=== PATIENT | male | born 1940 | race Asian ===

== ENCOUNTER 2020-11-06 18:16 | Inpatient (IN) | payer OTHER, SELFPAY ==
[~2020-11-06] VITALS: Ht 165.1 cm; Wt 65.3 kg
[~2020-11-06 18:16] MED LIST: ACET-9531 PO; ALEN70TA85 PO; ALLO100T21 PO; AMLO10TA PO; ASPI-1822 PO; BICA50TA7 PO; CLOP75TA55 PO; DOCU-299 PO; FINA5TAB1 PO; GABA100C PO; GLIM2TAB PO; HYDR-3293 PO; ISOS20TA13 PO; LINA290C PO; LIP80 PO; LYR75 PO; METF500T PO; METO100T14 PO; OMEP20TC10 PO; SITA100T8 PO; TAMS0.4C96 PO
[2020-11-06 20:19] VITALS: BP 123/76
--- NOTE | 2020-11-06 20:19 | NUR ---
PT TAKEN TO BED 10A
[2020-11-06] MEDS ORDERED: MORPHINE SULFATE 4 MG/ML SYR IVP ONE (20:25)
--- NOTE | 2020-11-06 20:45 | NUR ---
80 y/o [place] [facility] [place] / SOB x 1 day. Pt recently tested + COVID. Pt is nonverbal , observed incomprehensible sounds and only understands Setswana. GCS 14. RR even and mildly labored , Lung sounds BL diminished. No cough observed by pt at this time. Pt 80% on room air. Pt on NRB 15L oxygen level 97%. S1S2 noted. Pt placed on cardiac specialist, pulse ox and bp cuff. Pt resting in bed, locked and in lowest position, HOB elevated, side rail x 2 for pt safety. VSS. No acute distress noted. pmh: prostate cancer , DM , HTN NKA
[2020-11-06] MEDS ORDERED: DEXAMETHASONE 4 MG/ML VIAL IVP ONE (21:05)
[2020-11-06] MEDS ORDERED: metroNIDAZOLE 500 MG/NS PREMIX 100 ML IV ONE (21:05)
[2020-11-06] MEDS ORDERED: AZITHROMYCIN 500 MG in DEXTROSE 5% 250 ML IV ONE (21:05)
[2020-11-06] MEDS ORDERED: AZITHROMYCIN 500 MG INJ VIAL IV ONE (21:34)
[2020-11-06] MEDS ORDERED: cefTRIAXone 1,000 MG VIAL ONE (21:35)
[2020-11-06 21:44] LABS: HEMOGLOBIN 8.4 g/dL (12.0-18.0); LYMPHOCYTES # (AUTO) 0.2 K/uL (2.0-11.5); LYMPHOCYTES % (AUTO) 3.1 % (20.5-51.1); MEAN CORPUSCULAR HEMOGLOBIN 29 pg (27-31); MEAN CORPUSCULAR HGB CONC 34 g/dL (33-37); MEAN CORPUSCULAR VOLUME 87.2 fL (80-94); MONOCYTES # (AUTO) 0.1 K/uL (0.8-1.0); MONOCYTES % (AUTO) 1.9 % (1.7-9.3); PLATELET COUNT (AUTO) 274 K/uL (140-450); RED BLOOD CELL COUNT(AUTO) 2.87 MIL/uL (4.20-6.10); WHITE BLOOD COUNT (AUTO) 7.3 K/uL (4.8-10.8)
--- NOTE | 2020-11-06 22:00 | NUR ---
PER MERCEDEZ JEAN TO ADMINISTER STRAIGHT CATH FOR URINE COLLECTION.
[2020-11-06 22:02] LABS: ALBUMIN 2.8 g/dL (3.4-5.0); ANION GAP 19.9 (8-16); ASPARTATE AMINOTRANSFERASE 87 U/L (15-37); CARBON DIOXIDE 20.1 mmol/L (21-32); CHLORIDE 110 mmol/L (98-107); CREATININE 3.4 mg/dL (0.6-1.3); GLUCOSE 334 mg/dL (74-106); LACTATE DEHYDROGENASE 450 U/L (85-227); SODIUM SERUM 146 mmol/L (136-145); TOTAL BILIRUBIN 0.5 mg/dL (0.0-1.0)
[2020-11-06 22:03] LABS: PROTHROMBIN TIME 9.6 secs (10.8-13.4)
--- NOTE | 2020-11-06 22:07 | NUR ---
jose hemphill , flu & rsv swabs collected and handed to lab.
[2020-11-06 22:08] LABS: UREA NITROGEN, BLOOD 107 mg/dL (7-18)
[2020-11-06 22:19] LABS: FIBRINOGEN 524 mg/dL (200-400)
[2020-11-06 22:28] LABS: D-DIMER > 5000 ng/ml (0-400)
[2020-11-06 22:35] LABS: CKMB RELATIVE INDEX 0.4 (0.0-2.5); CREATINE KINASE MB 3.4 ng/mL (0-3.6)
--- NOTE | 2020-11-06 23:00 | NUR ---
EKG PERFORMED AT BEDSIDE. EKG READS SINUS RHYTHM @ 76
--- NOTE | 2020-11-06 23:50 | NUR ---
RT made aware of pt status on 6L NC - per oxygen order to maintain pt above 90% will place pt on high flow.
--- NOTE | 2020-11-07 00:17 | NUR ---
PT PLACED ON 15LOXY TO MAINTAIN SPO2 >90 CURRENT SPO2 91% HR 78
--- NOTE | 2020-11-07 00:45 | NUR ---
Urine sample collected and walked to lab.
--- NOTE | 2020-11-07 00:45 | NUR ---
# 16 FR Urinary catheter inserted utilizing sterile technique. Immediate return of 800 ml YELLOW urine noted. Urine sample collected and sent to lab. Pt tolerated procedure WELL. Perineal care provided at this time.
--- NOTE | 2020-11-07 00:50 | NUR ---
Sussy koch in ED - 11/07/20 at 0135 by ANGELA RT made aware of pt status on 6L NC - per oxygen order to maintain pt above 90% will place pt on high flow.
[2020-11-07 01:28] LABS: APPEARANCE,URINE CLEAR (CLEAR); BILIRUBIN,URINE NEGATIVE (NEGATIVE); BLOOD, URINE TRACE-I (NEGATIVE); COLOR,URINE YELLOW (YELLOW); LEUKOCYTE ESTERASE ,URINE NEGATIVE (NEGATIVE); NITRITE, URINE NEGATIVE (NEGATIVE); PH,URINE 5.5 (5.0-9.0); UGLUCOSE NEGATIVE (NEGATIVE)
--- NOTE | 2020-11-07 02:30 | NUR ---
Pt pulled off diaper and threw blankets on the ground. New diaper and blanket placed on pt at this time.
[2020-11-07 03:17] LABS: RBC,URINE 0-5 /HPF (0-5); WBC,URINE 0-5 /HPF (0-5)
[2020-11-07 03:18] LABS: URINE AMORPHOUS URATE 2+ /HPF (None Seen)
--- NOTE | 2020-11-07 04:00 | NUR ---
Pt resting in bed, gown pulled off and blanket kicked to end of bed. VSS. No acute distress noted at this time.
--- NOTE | 2020-11-07 06:30 | NUR ---
Pt pulled off diaper , blanket and gown. New diaper, blanket and gown placed on pt. VSS. No acute distress noted.
[2020-11-07] MEDS ORDERED: ONDANSETRON 4 MG/2 ML VIAL IVP PRN (06:35)
[2020-11-07] MEDS ORDERED: HYDROcodone/APAP 5/325 MG 1 TAB TAB PO PRN (06:35)
[2020-11-07] MEDS ORDERED: DOCUSATE SODIUM 100 MG GELCAP PO PRN (06:35)
[2020-11-07] MEDS ORDERED: ACETAMINOPHEN 325 MG TAB PO PRN (06:35)
[2020-11-07] MEDS ORDERED: ALBUTEROL HFA MDI 90 MCG/ACTUATION 8 GM INH PRN (06:35)
[2020-11-07] MEDS ORDERED: ZOLPIDEM 5 MG TAB PO PRN (06:35)
[2020-11-07] MEDS ORDERED: DEXTROSE 50% 50 ML SYR IVP PRN (06:40)
--- NOTE | 2020-11-07 07:22 | NUR ---
PATIENT HAS BEEN SCREENED AND CATEGORIZED MODERATE NUTRITION RISK. PATIENT WILL BE SEEN WITHIN 3-5 DAYS OF ADMISSION. 11/09/20 - 11/11/20 ALEYDA MCCRAY MBA,RD
--- NOTE | 2020-11-07 07:25 | NUR ---
Report provided to KIMI Louis for transfer of care.
[2020-11-07] MEDS: BLOOD GLUCOSE MONITORING 1 DEV DEV FS SCH ×3 (07:35→16:30)
[2020-11-07] MEDS: INSULIN LISPRO SLIDING SCALE 100 UNITS/ML VIAL SUBQ PRN ×3 (07:36→18:49)
--- NOTE | 2020-11-07 07:45 | NUR ---
RECEIVED CALL FROM ER NURSE TO ENDORSE PATIENT. COVID INFECTION. SOB, HX PROST CANCER, DM,HTN. R. UA 22 G SL, DIALYSIS PORT L. UA GERMAN SPEAKING PATIENT ON 15 L HIGH FLOW
--- NOTE | 2020-11-07 07:50 | NUR ---
ENDORSED TO CLEANING AND MAINTENANCE WORKER NURSE ,PT ON 15L OXIMIZER, INFORMED OF MESSAGE SENT TO DR. MOHAN RE: PT'S COMBATIVE BEHAVIOR, HE WILL FOLLOW UP WITH ADDITIONAL ORDERS
--- NOTE | 2020-11-07 08:00 | NUR ---
Patient will be admitted to care of [facility]. Admited to TELE. Will go to room 107. Belongings list completed. Report to GA BOLDEN.
[2020-11-07 08:23] LABS: RSV NEGATIVE (NEGATIVE)
--- NOTE | 2020-11-07 08:45 | NUR ---
PT ARRIVED TO UNIT, 15L OXIMIZER, FRENCH SPEAKING, PT TAKES OFF OXIMIZER, PRINTED CIRCUIT LAYOUT TAPER ASKED FOR HIM TO REFRAIN FROM REMOVING MASK FOR HIS BENEFIT IN HIS FRENCH LANGUAGE. PT STABLE.
[2020-11-07 08:57] LABS: BASOPHILS % (AUTO) 0.2 % (0.0-2.0); HEMATOCRIT 25.2 % (36-52); HEMOGLOBIN 8.4 g/dL (12.0-18.0); LYMPHOCYTES # (AUTO) 0.2 K/uL (2.0-11.5); LYMPHOCYTES % (AUTO) 3.9 % (20.5-51.1); MEAN CORPUSCULAR HEMOGLOBIN 29 pg (27-31); MEAN CORPUSCULAR HGB CONC 33 g/dL (33-37); MEAN CORPUSCULAR VOLUME 86.7 fL (80-94); MONOCYTES # (AUTO) 0.1 K/uL (0.8-1.0); MONOCYTES % (AUTO) 1.4 % (1.7-9.3); NEUTROPHILS # (AUTO) 4.5 K/uL (1.8-7.7); NEUTROPHILS % (AUTO) 94.5 % (42.2-75.2); PLATELET COUNT (AUTO) 279 K/uL (140-450); RED BLOOD CELL COUNT(AUTO) 2.91 MIL/uL (4.20-6.10); RED CELL DISTRIBUTION WIDTH 15.9 % (11.6-13.7); WHITE BLOOD COUNT (AUTO) 4.7 K/uL (4.8-10.8)
[2020-11-07] MEDS: ASCORBIC ACID 500 MG TAB PO SCH (09:00)
[2020-11-07] MEDS: VITAMIN D 400 IU TAB PO SCH (09:00)
[2020-11-07] MEDS: AZITHROMYCIN 250 MG TAB PO SCH (09:00)
[2020-11-07] MEDS: ENOXAPARIN 30 MG/0.3 ML SYR SUBQ SCH (09:00)
[2020-11-07 09:22] LABS: PROTHROMBIN TIME 9.8 secs (10.8-13.4)
[2020-11-07 09:34] LABS: ALBUMIN 2.7 g/dL (3.4-5.0); ANION GAP 15.3 (8-16); ASPARTATE AMINOTRANSFERASE 84 U/L (15-37); CARBON DIOXIDE 23.4 mmol/L (21-32); CHLORIDE 111 mmol/L (98-107); CREATININE 3.2 mg/dL (0.6-1.3); GLUCOSE 384 mg/dL (74-106); POTASSIUM 3.7 mmol/L (3.5-5.1); SODIUM SERUM 146 mmol/L (136-145); TOTAL BILIRUBIN 0.4 mg/dL (0.0-1.0)
[2020-11-07 10:37] LABS: UREA NITROGEN, BLOOD 105 mg/dL (7-18)
--- NOTE | 2020-11-07 11:01 | NUR ---
SOCIAL WORK NOTE: Patient's Orientation Unable To Assess Information Provided By TESHA RUBY - SON Comments SW WAS UNABLE TO MEET PATIENT AT BEDSIDE. SW COMPLETED ASSESSMENT WITH PATIENT'S SON. Shackler, Realtionship and Phone Number TESHA OLSON [phone] [facility] Power of Civil Draftsman No Does Patient Have a POLST No Identifying Problems No Social Work Triggers Is A Social Work Consult Needed No Mandate Report Filed No Explanation Of Identifying Problems PATIENT IS AN 80-YEAR-OLD MALE ADMITTED FOR SUSPECTED COVID AND PNEUMONIA. PATIENT HAS PMHX PROSTATE CANCER, DIABETES, AND HYPERTENSION. Admitted From Intermediate Care/[facility] Intermediate Facility [facility] - [phone] Pre-Admission Level Of Functioning Status Total Care Prior Resources/Services Used In Last 12 Months SNF Intermediate Care Prior Resources/Service Comments PER SON, PATIENT IS RETIREMENT AND ON A BED HOLD. Prior DME Home Oxygen Wheelchair Patient Had Caregiver No Home Support No Caregiver Issues Financial Issues No Known Financial Issue Referral To The Financial Counselor Needed No Factors/Needs No D/C Needs Identified Pt/Rep Participated In Discharge Plan Yes Patient/Family Agress With Discharge Plan Yes Discharge Plan Comments TENTATIVE DISCHARGE PLAN IS FOR PATIENT TO RETURN TO [facility] [place]. DC Plan Status Initiated
--- NOTE | 2020-11-07 13:30 | NUR ---
PT REFUSED PO MEDICATIONS, WILL NOT TAKE ANYTHING BY MOUTH
--- NOTE | 2020-11-07 14:10 | NUR ---
[facility] SWAB OBTAINED MAL. NARES ,SENT TO LAB FOR PROCESSING, ORDER ENTERED IN SYSTEM
--- NOTE | 2020-11-07 14:42 | NUR ---
PT TO IMAGING DEPT FOR CT SCAN
[2020-11-07] MEDS: NACL 0.9% 1,000 ML IV SCH ×2 (15:30→16:35)
[2020-11-07 16:00] VITALS: BP 118/76
[2020-11-07] MEDS: ALBUTEROL HFA MDI 90 MCG/ACTUATION 8 GM INH SCH ×2 (16:02→19:45)
[2020-11-07 17:16] LABS: CHOL/HDL RATIO 2.5 (1-4.5); FREE T4 (FREE THYROXINE) 0.95 ng/dL (0.76-1.46); MAGNESIUM 3.1 mg/dL (1.8-2.4); PHOSPHORUS 3.5 mg/dL (2.5-4.9); THYROID STIMULATING HORMONE 1.06 uIU/mL (0.34-3.74)
--- NOTE | 2020-11-07 19:07 | NUR ---
PT ATTEMPTING TO PULL OUT IV ACCESS AND TAKES OXYGEN MASK OFF, HAS BEEN PUNCHING STAFF AND KICKING. HAD TO PLACE SOFT RESTRAINTS MAL. WRIST TO CHANGE SHEETS AND KEEP FROM PULLING OFF OXYGEN MASK. SENT MESSAGE TO DR. MOHAN TO NOTIFY. WILL AWAIT FURTHER INSTRUCTIONS
[2020-11-07 21:05] VITALS: BP 115/76
[2020-11-07] MEDS: ATORVASTATIN 80 MG TAB PO SCH (23:38)
[2020-11-07] MEDS: PREGABALIN 25 MG CAP PO SCH (23:38)
[2020-11-07] MEDS: TAMSULOSIN 0.4 MG CAP PO SCH (23:39)
[2020-11-08] MEDS: ALBUTEROL HFA MDI 90 MCG/ACTUATION 8 GM INH SCH ×6 (00:16→20:05)
[2020-11-08] MEDS: BLOOD GLUCOSE MONITORING 1 DEV DEV FS SCH ×5 (02:01→21:00)
[2020-11-08] MEDS: NACL 0.9% 1,000 ML IV SCH ×3 (02:35→22:35)
--- NOTE | 2020-11-08 07:08 | NUR ---
FNS CONSULT FOR WOUNDS/PRESSURE ULCERS RECEIVED ON 11/08/20. PATIENT IS RESCREENED BY RD AND NOW CATEGORIZED HIGH NUTRITIONAL RISK. PATIENT WILL BE SEEN TODAY 11/08/[address] INITIAL ASSESSMENT/RECOMMENDATIONS WILL BE CHARTED. ALEYDA MCCRAY MBA, RD
--- NOTE | 2020-11-08 07:15 | NUR ---
RECEIVED PATIENT FROM NIGHT NURSE. PATIENT IN BED, EYES CLOSED, CHEST NOTED RISING. RESP EVEN AND UNLABORED ON 15L OXIMIZER. JOSHUA 22G SL. NO NOTED ACUTE S/S DISTRESS AT THIS TIME. CALL LIGHT WITHIN REACH. WILL CONTINUE TO MONITOR.
[2020-11-08 08:00] VITALS: BP 108/69
--- NOTE | 2020-11-08 08:27 | NUR ---
PATIENT UNABLE TO FOLLOW COMMANDS, COMBATIVE AND ATTEMPTS TO REMOVE IV LINES. RECEIVED ORDER FROM DR VICTOR IN HOUSE FOR RESTRAINTS TO UPPER BILATERAL SOFT WRISTS. ORDER CARRIED OUT.
[2020-11-08] MEDS: LOSARTAN 50 MG TAB PO SCH (09:00)
[2020-11-08] MEDS: GABAPENTIN 100 MG CAP PO SCH ×2 (09:00→09:49)
[2020-11-08] MEDS: METOPROLOL SUCCINATE 50 MG TABER PO SCH ×2 (09:00→09:49)
[2020-11-08] MEDS: ASCORBIC ACID 500 MG TAB PO SCH ×2 (09:00→09:51)
[2020-11-08] MEDS: AZITHROMYCIN 250 MG TAB PO SCH ×2 (09:00→09:53)
[2020-11-08] MEDS: VITAMIN D 400 IU TAB PO SCH ×2 (09:00→09:50)
[2020-11-08] MEDS: amLODIPine 5 MG TAB PO SCH (09:00)
[2020-11-08] MEDS: hydroCHLOROthiazide 25 MG TAB PO SCH ×2 (09:00→09:50)
[2020-11-08] MEDS: BICALUTAMIDE 50 MG TAB PO SCH ×2 (09:00→09:52)
[2020-11-08] MEDS: TAMSULOSIN 0.4 MG CAP PO SCH ×3 (09:00→22:40)
[2020-11-08] MEDS: ASPIRIN 81 MG TAB.CHEW PO SCH ×2 (09:00→09:51)
[2020-11-08] MEDS: ENOXAPARIN 30 MG/0.3 ML SYR SUBQ SCH (09:45)
[2020-11-08 10:05] LABS: ANION GAP 18.1 (8-16); CARBON DIOXIDE 22.3 mmol/L (21-32); CHLORIDE 114 mmol/L (98-107); CREATININE 2.8 mg/dL (0.6-1.3); GLUCOSE 298 mg/dL (74-106); POTASSIUM 3.4 mmol/L (3.5-5.1); SODIUM SERUM 151 mmol/L (136-145)
[2020-11-08] MEDS: INSULIN LISPRO SLIDING SCALE 100 UNITS/ML VIAL SUBQ PRN ×2 (10:12→17:28)
[2020-11-08 10:13] LABS: MAGNESIUM 3.2 mg/dL (1.8-2.4); PHOSPHORUS 3.8 mg/dL (2.5-4.9); UREA NITROGEN, BLOOD 100 mg/dL (7-18)
[2020-11-08 10:16] LABS: BASOPHILS % (AUTO) 0.1 % (0.0-2.0); HEMATOCRIT 25.8 % (36-52); HEMOGLOBIN 8.4 g/dL (12.0-18.0); LYMPHOCYTES # (AUTO) 0.3 K/uL (2.0-11.5); LYMPHOCYTES % (AUTO) 2.2 % (20.5-51.1); MEAN CORPUSCULAR HEMOGLOBIN 28 pg (27-31); MEAN CORPUSCULAR HGB CONC 33 g/dL (33-37); MEAN CORPUSCULAR VOLUME 87.3 fL (80-94); MONOCYTES # (AUTO) 0.5 K/uL (0.8-1.0); MONOCYTES % (AUTO) 3.5 % (1.7-9.3); NEUTROPHILS # (AUTO) 12.3 K/uL (1.8-7.7); NEUTROPHILS % (AUTO) 94.2 % (42.2-75.2); PLATELET COUNT (AUTO) 329 K/uL (140-450); RED BLOOD CELL COUNT(AUTO) 2.95 MIL/uL (4.20-6.10)
--- NOTE | 2020-11-08 10:25 | NUR ---
PATIENT IN BED SLEEPING. PATIENT WAS AROUSED TO AWAKE. PATIENT BECAME COMBATIVE AND YELLING AT STAFF. PATIENT UNABLE TO FOLLOW COMMANDS AND ATTEMPTED TO GET OUT OF RESTRAINTS. PATIENT REFUSED PO MEDICATIONS. JOSHUA 22G INTACT INFUSING NS 100ML/HR. BLOOD SUGAR CHECK 300, INSULIN GIVEN PER PROTOCOL. RESTRAINTS IN PLACE BILATERAL SOFT WRISTS. RESP EVEN AND UNLABORED ON 15L OXIMIZER. SAFETY MEASURES IN PLACE. CALL LIGHT WITHIN REACH. WILL CONTINUE TO MONITOR.
--- NOTE | 2020-11-08 11:19 | NUR ---
11/08/20 RD INITIAL ASSESSMENT COMPLETED PLEASE REFER TO NUTRITION ASSESSMENT UNDER CARE ACTIVITY FOR ESTIMATED NUTRITIONAL NEEDS. RD RECOMMENDATIONS: 1. WHEN MEDICALLY CLEARED FOR PO DIET, RECOMMEND 60GM CCHO RENAL DIET. 2. F/U 2-3 DAYS; HIGH RISK ALEYDA MCCRAY MBA, RD
[2020-11-08 12:00] VITALS: BP 132/50
--- NOTE | 2020-11-08 12:25 | NUR ---
PATIENT IN BED SLEEPING. CHEST NOTED RISING. NO ACUTE S/S DISTRESS. RESP EVEN AND UNLABORED ON OXIMIZER. CALL LIGHT WITHIN REACH. WILL CONTINUE TO MONITOR.
--- NOTE | 2020-11-08 14:35 | NUR ---
SPOKE TO SON TESHA RUBY TO UPDATE PATIENT STATUS. ACCORDING TO PATIENT SON, PATIENT IS A FULL DNR. DR VICTOR NOTIFIED. NO NOTED DISTRESS AT THIS TIME. PATIENT IN BED SLEEPING, CHEST NOTED RISING. CALL LIGHT WITHIN REACH. WILL CONTINUE TO MONITOR.
--- NOTE | 2020-11-08 15:35 | NUR ---
DC PLANNIN YRS OLD MALE PATIENT [place] [facility] [place] OF SUSPECTED COVID, PNA RESPIRATORY FAILURE . COVID TEST POSITIVE ON 15L/NRB SATING 90%. STARTED ON COVID PROTOCOL . CONSULTED WITH PULMO, AND UROLOGIST FOR PROSTATE CA. DC PLAN TO [place] [facility] [place] STABLE CM TO FOLLOW
[2020-11-08 16:00] VITALS: BP 112/48
--- NOTE | 2020-11-08 17:30 | NUR ---
PATIENT IN BED SLEEPING, CHEST NOTED RISING. NO ACUTE S/S DISTRESS. CALL LIGHT WITHIN REACH. WILL CONTINUE TO MONITOR.
[2020-11-08] MEDS ORDERED: POTASSIUM CHLORIDE 20% 40 MEQ/15 ML UDC PO SCH (19:00)
--- NOTE | 2020-11-08 19:00 | NUR ---
Patient received in bed alert and oriented x 1. Maximal care rendered. Bilateral wrist restraints in place for safety. Patient combative with staff during care. Discussed with patient fall and safety precautions and RN plan of care. Discussed with patient medication regimen and hourly, prn rounding. Patient requires redirection to safety. Reinforced with patient need to comply and purpose of plan. VSS. Remains on telemetry ST. Respirations even and nonlabored.
--- NOTE | 2020-11-08 19:20 | NUR ---
ENDORSED PATIENT TO NIGHT NURSE. PATIENT IN STABLE CONDITION.
[2020-11-08 20:00] VITALS: BP_SYST 116; BP_SYST 96; BP_DIAS 57; BP_DIAS 60
[2020-11-08] MEDS: PREGABALIN 25 MG CAP PO SCH (22:38)
[2020-11-08] MEDS: ATORVASTATIN 80 MG TAB PO SCH (22:40)
[2020-11-09] VITALS: BP 133/48
--- NOTE | 2020-11-09 | NUR ---
RN continue with plan of care. Bilateral wrist restraints in place. RN/staff hourly rounding and prn. Reinforced fall and safety precautions. Medication regimen continued. VSS. No acute distress noted.
[2020-11-09 04:00] VITALS: BP 118/56
--- NOTE | 2020-11-09 05:09 | NUR ---
RN continue with patient plan of care. No acute distress noted. VSS.
--- NOTE | 2020-11-09 05:23 | NUR ---
Patient sleeping during rounding, fall and safety precautions maintained. Assisted with ADLs as needed. Medication regimen ongoing. VSS. No acute distress noted.
[2020-11-09] MEDS: BLOOD GLUCOSE MONITORING 1 DEV DEV FS SCH ×4 (06:01→21:00)
--- NOTE | 2020-11-09 07:30 | NUR ---
REC'D SHIFT REPORT FROM NIGHTSHIFT NURSE. WILL PROCEED W/ POC.
[2020-11-09 08:00] VITALS: BP 135/91
[2020-11-09 08:53] LABS: BASOPHILS % (AUTO) 0.3 % (0.0-2.0); HEMATOCRIT 24.4 % (36-52); LYMPHOCYTES # (AUTO) 0.1 K/uL (2.0-11.5); LYMPHOCYTES % (AUTO) 0.9 % (20.5-51.1); MEAN CORPUSCULAR HEMOGLOBIN 29 pg (27-31); MEAN CORPUSCULAR HGB CONC 33 g/dL (33-37); MEAN CORPUSCULAR VOLUME 86.9 fL (80-94); MONOCYTES # (AUTO) 0.3 K/uL (0.8-1.0); MONOCYTES % (AUTO) 1.9 % (1.7-9.3); NEUTROPHILS # (AUTO) 13.3 K/uL (1.8-7.7); NEUTROPHILS % (AUTO) 96.9 % (42.2-75.2); PLATELET COUNT (AUTO) 300 K/uL (140-450); RED BLOOD CELL COUNT(AUTO) 2.81 MIL/uL (4.20-6.10); WHITE BLOOD COUNT (AUTO) 13.7 K/uL (4.8-10.8)
[2020-11-09] MEDS: BICALUTAMIDE 50 MG TAB PO SCH ×2 (09:00→09:30)
[2020-11-09] MEDS: AZITHROMYCIN 250 MG TAB PO SCH ×2 (09:00→09:29)
[2020-11-09] MEDS: ASCORBIC ACID 500 MG TAB PO SCH ×2 (09:00→09:25)
[2020-11-09] MEDS: LOSARTAN 50 MG TAB PO SCH ×2 (09:00→09:29)
[2020-11-09] MEDS: amLODIPine 5 MG TAB PO SCH ×2 (09:00→09:25)
[2020-11-09] MEDS: hydroCHLOROthiazide 25 MG TAB PO SCH ×2 (09:00→09:29)
[2020-11-09] MEDS: TAMSULOSIN 0.4 MG CAP PO SCH ×3 (09:00→21:00)
[2020-11-09] MEDS: GABAPENTIN 100 MG CAP PO SCH ×2 (09:00→09:30)
[2020-11-09] MEDS: METOPROLOL SUCCINATE 50 MG TABER PO SCH ×2 (09:00→09:27)
[2020-11-09] MEDS: allopurinoL 100 MG TAB PO SCH ×2 (09:00→09:26)
[2020-11-09] MEDS: ASPIRIN 81 MG TAB.CHEW PO SCH ×2 (09:00→09:26)
[2020-11-09] MEDS: VITAMIN D 400 IU TAB PO SCH ×2 (09:00→09:24)
[2020-11-09 09:03] LABS: ALBUMIN 2.8 g/dL (3.4-5.0); ANION GAP 18.8 (8-16); ASPARTATE AMINOTRANSFERASE 163 U/L (15-37); CHLORIDE 122 mmol/L (98-107); CREATININE 2.3 mg/dL (0.6-1.3); GLUCOSE 262 mg/dL (74-106); MAGNESIUM 3.2 mg/dL (1.8-2.4); PHOSPHORUS 3.2 mg/dL (2.5-4.9); POTASSIUM 3.8 mmol/L (3.5-5.1); TOTAL BILIRUBIN 0.4 mg/dL (0.0-1.0)
[2020-11-09 09:22] LABS: SODIUM SERUM 159 mmol/L (136-145); UREA NITROGEN, BLOOD 91 mg/dL (7-18)
[2020-11-09] MEDS: ENOXAPARIN 30 MG/0.3 ML SYR SUBQ SCH (09:23)
[2020-11-09] MEDS: NACL 0.9% 1,000 ML IV SCH (09:52)
--- NOTE | 2020-11-09 09:52 | NUR ---
ATTEMPTED TO ADMINISTERED PRESCRIBED MEDS PER MD ORDER. PATIENT ASLEEP, REFUSED TO WAKE UP FOR MEDS. RESTRAINTS REMOVED, SKIN CHECKED, CAP REFILL LESS THAN 3 SEC. PATIENT COMBATIVE DURING REMOVAL. RENEWED AND REPLACED SOFT RESTRAINTS ON WRISTS.
--- NOTE | 2020-11-09 10:07 | NUR ---
REC'D CRITICAL LAB VALUE FROM YORDY: CK TOTAL 2593, CHLORIDE 122, SODIUM 159. NOTIFIED MD, PENDING RECOMMENDATION.
[2020-11-09 10:44] LABS: CKMB RELATIVE INDEX 0.7 (0.0-2.5); CREATINE KINASE MB 18.8 ng/mL (0-3.6); LACTATE DEHYDROGENASE 647 U/L (85-227)
[2020-11-09 12:00] VITALS: BP 126/42
[2020-11-09] MEDS: ALBUTEROL HFA MDI 90 MCG/ACTUATION 8 GM INH SCH ×3 (12:00→20:00)
--- NOTE | 2020-11-09 13:01 | NUR ---
WOUND CARE EVALUATION NOTE: SKIN ASSESSMENT DONE WITH THIS 80 Y/O MALE PT. WITH COVID POSSITIVE. WITH SKIN ALTERATION PRESSURE INJURY. PT IS ON OXYMIZER 15 L, HOB ELEVATED, BILATERAL SOFT WRIST RESTRAINT IN PLACE, PT. IS RESTLESS, UNABLE TO EXPLAINED NEEDS VERBALLY. SKIN IS WARM AND MOIST, INCONTINENT OF BLADDER DURING ASSESSMENT, PT. IS VERY SKINNY WITH SKIN TO BONE, BLE NO HAIR GROWTH, NO EDEMA TO BILATERAL LOWER LEGS. BILATERAL DORSAL PEDAL PULSES PRESENT AND DIMINISHES, THICKEN FUNGAL NAILS OBSERVED.BILATERAL HEELS THICK CALLUSE. COMORBIDITIES RELATED TO DELAY WOUND HEALING AND FURTHER SKIN BREAKS: BOWEL AND BLADDER INCONTINENCE, RENAL FAILURE ON HD, INFECTION, HYPOXEMIC DECREASE TISSUE PERFUSION, TISSUE ISCHEMA, DECREASE MOBILITY AND FUNCTIONAL ABILITIES, AND HOB ELEVATED THE MAJORITY OF TIMES DUE TO MEDICAL REASONS. COVID RELATED SKIN FAILURE DUE TO TISSUE LESS TOLERATE TO PRESSURE, SHEARING AND POSSIBLE ASSOCIATED WITH MICROVASCULAR INJURY. INTEGUMENTARY -UPPER ARMS MULTIPLE ECCHYMOSIS, SKIN INTACT -INCONTINENT ASSOCIATE DERMATITIS (IAD) TO: INNER THIGHS AND SCROTAL AREA, SKIN REDNESS, PEELING - COVID RELATED SKIN FAILURE DTI TO SACROCOCCYX, 7X6CM, 100 % MAROON COLOR , IRREGULAR SHAPE. CENTER OF WWOUND AREA WITH PARTIAL THICKNESS SKIN LOSS 2X2CM SUPERFICIAL DEPTH WOUND BED 100% GRANULATING TISSUE , MOIST, NO ODOR, AND SURROUNDING PURPLE DTI EXTENDED TO RIGHT AND LEFT INNER BUTTOCKS INDICATED FURTHER DAMAGE RECOMMENDATIONS: -APPLY HYDRAGUARD TO INNER THIGHS AND SCROTAL AREAS BID AND PRN IF SOILING -CLEANSE SACROCOCCYX WITH WOUND CLEANSING SOLUTION, APPLY HYDROGEL TO WOUND BED AND COVER WITH FOAM DRESSING QD AND PRN IF SOILING -APPLY HEEL PROTECTORS TO BOTH HEELS AT ALL TIMES -OFFLOAD BILATERAL HEELS BY PLACING PILLOWS UNDER CALVES UNLESS OTHERWISE CONTRAINDICATED -PRESSURE REDISTRIBUTION SURFACE THERAPY -TURN AND REPOSITION Q2H, OFFLOAD SACRALCOCCYX AND BUTTOCKS BY TURNING RIGHT AND LEFT -CONTINUE TO FOLLOW RD RECOMMENDATIONS PLEASE CONTACT WOUND CARE NURSE FOR ANY QUESTION AND CHANGE OF WOUND CONDITION
[2020-11-09] MEDS: DEXTROSE 5% 1,000 ML IV SCH ×2 (13:05→19:45)
--- NOTE | 2020-11-09 13:05 | NUR ---
IVF CHANGED FROM NS TO D5%. PATIENT TOLERATED WELL. WILL CONT TO MONITOR.
--- NOTE | 2020-11-09 14:00 | NUR ---
+ covid result received from lab. Copy given to infection control
[2020-11-09] MEDS: INSULIN LISPRO SLIDING SCALE 100 UNITS/ML VIAL SUBQ PRN ×2 (15:34→22:02)
--- NOTE | 2020-11-09 15:40 | NUR ---
ADMINISTERED PRN INSULIN FOR BG 273. PATIENT TOLERATED WELL. MEDICATION REINFORCEMENT NEEDED. SAFETY MEASURES IN PLACE. WILL CONT TO MONITOR.
[2020-11-09 16:00] VITALS: BP 125/61
--- NOTE | 2020-11-09 17:00 | NUR ---
UNABLE TO GET BG SAMPLE FROM PATIENT, FINGER NOT PRODUCING ENOUGH BLOOD TO READ. PATIENT IS STABLE, RESTING, NO SIGNS OF DISTRESS. SAFETY MEASURES IN PLACE. WILL CONT TO MONITOR.
--- NOTE | 2020-11-09 17:01 | NUR ---
NOTIFIED BY WOUND CARE NURSE TODAY THAT PT HAS CHANGE IN SKIN CONDITION. CURRENTLY RECEIVING RENAL PUREE DIET, WILL ADD NEPRO BID TO MEALS FOR ADDITIONAL KCALS/PRO, FULL NUTRITION FOLLOW-UP SCHEDULED FOR COMPLETION ON 11/[address]
--- NOTE | 2020-11-09 19:30 | NUR ---
ENDORSED PATIENT TO NIGHTSHIFT NURSE. PATIENT IS STABLE
--- NOTE | 2020-11-09 19:30 | NUR ---
RECEIVED PATIENT FROM AM SHIFT NURSE FOR CONTINUITY OF CARE. CONFUSED. RESPIRATIONS TACHYPNEIC AND SLIGHTLY LABORED. CONTINUES ON O2 15L VIA OXIMIZER. O2SAT 92%. SKIN WARM, DRY. IV SITE TO RIGHT UPPER ARM 22G PATENT/INTACT, INFUSING FLUIDS WELL. FLACC 0. NO S/S ACUTE DISTRESS. ABDOMEN SOFT, NONTENDER, NONDISTENDED. BOWEL SOUNDS ACTIVE X4 QUADRANTS. PATIENT IS INCONTINENT OF B/B. PLAN OF CARE DISCUSSED. ISOLATION PRECAUTIONS OBSERVED. SAFETY PRECAUTIONS IN PLACE. FREQUENT ROUNDS BY ALL STAFF.
[2020-11-09 20:00] VITALS: BP 144/48
[2020-11-09] MEDS: PREGABALIN 25 MG CAP PO SCH (21:00)
[2020-11-09] MEDS: ATORVASTATIN 80 MG TAB PO SCH (21:00)
--- NOTE | 2020-11-09 21:00 | NUR ---
MEDS GIVEN. PATIENT TURNED AND REPOSITIONED.
--- NOTE | 2020-11-09 23:00 | NUR ---
INCONTINENT CARE RENDERED WITH MUSIC TYPOGRAPHER AT BEDSIDE.
[2020-11-10] VITALS: BP 123/46
[2020-11-10] MEDS: HYDRAGUARD CREAM TP SCH ×2 (01:00→13:00)
--- NOTE | 2020-11-10 01:00 | NUR ---
MADE ROUNDS. PATIENT IS ASLEEP.
--- NOTE | 2020-11-10 03:00 | NUR ---
TURNED AND REPOSITIONED. PATIENT IS VERY CONFUSED AND COMBATIVE DURING CARE. UNABLE TO REORIENT.
[2020-11-10] MEDS: DEXTROSE 5% 1,000 ML IV SCH ×3 (03:45→19:45)
[2020-11-10 04:00] VITALS: BP 138/52
[2020-11-10] MEDS: ALBUTEROL HFA MDI 90 MCG/ACTUATION 8 GM INH SCH ×5 (04:00→16:00)
--- NOTE | 2020-11-10 05:00 | NUR ---
INCONTINENT CARE RENDERED WITH SPIRAL GEAR GENERATOR AT BEDSIDE. NO S/S ACUTE DISTRESS. FREQUENT ROUNDS BY ALL STAFF.
[2020-11-10] MEDS: BLOOD GLUCOSE MONITORING 1 DEV DEV FS SCH ×4 (07:00→21:30)
[2020-11-10] MEDS: INSULIN LISPRO SLIDING SCALE 100 UNITS/ML VIAL SUBQ PRN ×4 (07:00→21:31)
--- NOTE | 2020-11-10 07:15 | NUR ---
ENDORSED PATIENT TO AM SHIFT NURSE FOR CONTINUITY OF CARE.
--- NOTE | 2020-11-10 07:20 | NUR ---
RECEIVED PATIENT FROM INSPECTOR FLOOR SUB ASSEMBLY NURSE. CONFUSED. RESPIRATIONS EVEN AND UNLABORED. CONTINUES ON O2 15L VIA OXIMIZER. O2SAT 92%. SKIN WARM, DRY. IV SITE TO RIGHT UPPER ARM 22G PATENT/INTACT. FLACC 0. NO S/S ACUTE DISTRESS. PLAN OF CARE DISCUSSED. SAFETY PRECAUTIONS IN PLACE. BED IN LOW POSITION AND CALL LIGHTS WITHIN REACH. WILL CONTINUE TO MONITOR.
[2020-11-10 08:00] VITALS: BP 137/53
--- NOTE | 2020-11-10 09:00 | NUR ---
ALL SCHEDULED MEDS GIVEN. PT IS STABLE. NO DISTRESS NOTED. WILL CONTINUE MONITOR. Addendum: 11/10/20 at 2013 by Moi Friend RN RN TIME WRONG. ALL SCHEDULED MEDS GIVEN AT 1200
[2020-11-10 09:39] LABS: BASOPHILS % (AUTO) 0.2 % (0.0-2.0); HEMATOCRIT 25.5 % (36-52); HEMOGLOBIN 8.2 g/dL (12.0-18.0); LYMPHOCYTES # (AUTO) 0.2 K/uL (2.0-11.5); LYMPHOCYTES % (AUTO) 1.4 % (20.5-51.1); MEAN CORPUSCULAR HEMOGLOBIN 28 pg (27-31); MEAN CORPUSCULAR HGB CONC 32 g/dL (33-37); MEAN CORPUSCULAR VOLUME 87.3 fL (80-94); MONOCYTES # (AUTO) 0.3 K/uL (0.8-1.0); MONOCYTES % (AUTO) 1.7 % (1.7-9.3); NEUTROPHILS # (AUTO) 14.5 K/uL (1.8-7.7); NEUTROPHILS % (AUTO) 96.7 % (42.2-75.2); PLATELET COUNT (AUTO) 284 K/uL (140-450); RED BLOOD CELL COUNT(AUTO) 2.92 MIL/uL (4.20-6.10); RED CELL DISTRIBUTION WIDTH 16.4 % (11.6-13.7)
[2020-11-10 10:21] LABS: ALBUMIN 2.7 g/dL (3.4-5.0); ANION GAP 19.9 (8-16); ASPARTATE AMINOTRANSFERASE 128 U/L (15-37); CARBON DIOXIDE 22.1 mmol/L (21-32); CHLORIDE 124 mmol/L (98-107); CREATININE 2.3 mg/dL (0.6-1.3); GLUCOSE 367 mg/dL (74-106); LACTATE DEHYDROGENASE 678 U/L (85-227); MAGNESIUM 3.1 mg/dL (1.8-2.4); PHOSPHORUS 2.8 mg/dL (2.5-4.9); TOTAL BILIRUBIN 0.5 mg/dL (0.0-1.0)
[2020-11-10 10:50] LABS: SODIUM SERUM 162 mmol/L (136-145); UREA NITROGEN, BLOOD 78 mg/dL (7-18)
--- NOTE | 2020-11-10 11:07 | NUR ---
CRITICAL VALUES REPORTED. MD IS AWARE AND NEW ORDERS HAS BEEN PLACED
--- NOTE | 2020-11-10 11:30 | NUR ---
BLOOD GLUCOSE CHECK WAS 309. INSULIN COVERAGE NEEDED. ADMINISTER INSULIN SQ PER MD ORDERED.
[2020-11-10] MEDS: ENOXAPARIN 30 MG/0.3 ML SYR SUBQ SCH (11:32)
--- NOTE | 2020-11-10 11:40 | NUR ---
DR GANDHI PLACED A PLASMA ORDER. CONSENT IS NEEDED.
[2020-11-10] MEDS: BICALUTAMIDE 50 MG TAB PO SCH (11:41)
[2020-11-10] MEDS: VITAMIN D 400 IU TAB PO SCH (11:45)
[2020-11-10] MEDS: LOSARTAN 50 MG TAB PO SCH (11:45)
[2020-11-10] MEDS: ASPIRIN 81 MG TAB.CHEW PO SCH (11:45)
[2020-11-10] MEDS: ASCORBIC ACID 500 MG TAB PO SCH (11:47)
[2020-11-10] MEDS: hydroCHLOROthiazide 25 MG TAB PO SCH (11:47)
[2020-11-10] MEDS: amLODIPine 5 MG TAB PO SCH (11:48)
[2020-11-10] MEDS: TAMSULOSIN 0.4 MG CAP PO SCH ×2 (11:48→21:30)
[2020-11-10] MEDS: GABAPENTIN 100 MG CAP PO SCH (11:49)
[2020-11-10] MEDS: METOPROLOL SUCCINATE 50 MG TABER PO SCH (11:49)
[2020-11-10] MEDS: DEXAMETHASONE 4 MG/ML VIAL IVP SCH (11:54)
[2020-11-10 12:00] VITALS: BP 150/42
[2020-11-10] MEDS: SKINTEGRITY HYDROGEL TP SCH (13:00)
--- NOTE | 2020-11-10 14:00 | NUR ---
DR. GUY AWARE OF CRITICAL VALUES. AWATING MD TO PLACE NEW ORDERS.
--- NOTE | 2020-11-10 14:30 | NUR ---
PATIENT IS STABLE. NO ACUTE DISTRESS NOTED WILL CONTINUE TO MONITOR.
--- NOTE | 2020-11-10 15:15 | NUR ---
CHAGNED PATIENTS PADS. KEPT HIM DRY AND CLEAN. ALSO CHANGED WOUND DRESSING ON SACRAL AREA
[2020-11-10 16:00] VITALS: BP 115/47
--- NOTE | 2020-11-10 17:14 | NUR ---
BLOOD GLUCOSE CHECK WAS AT 246. INSULIN COVERAGE NEEDED. ADMINISTERED INSULIN SQ PER MD ORDERED.
--- NOTE | 2020-11-10 19:20 | NUR ---
ENDORSED TO MEDICAL DOCTOR NUCLEAR MEDICINE NURSE FOR CONTINUITY OF CARE.
--- NOTE | 2020-11-10 19:25 | NUR ---
RECEIVED PATIENT FROM AM SHIFT NURSE FOR CONTINUITY OF CARE. PATIENT CAN MAKE SIMPLE NEEDS KNOWN. RESPIRATIONS SLIGHTLY LABORED, O2SAT RANGING FROM 88-92%. CONTINUES ON O2 15L VIA OXYMIZER. SKIN WARM, DRY. IV SITE TO RIGHT UPPER ARM 22G PATENT/INTACT, INFUSING FLUIDS WELL. NO C/O PAIN. BSWR IN PLACE, ADEQUATE CIRCULATION TO BOTH EXTREMITIES. NO INJURY TO PATIENT. ABDOMEN SOFT, NONTENDER, NONDISTENDED. BOWEL SOUNDS ACTIVE X4 QUADRANTS. PATIENT IS INCONTINENT OF B/B. PLAN OF CARE DISCUSSED. ISOLATION PRECAUTIONS OBSERVED BY ALL STAFF. SAFETY PRECAUTIONS IN PLACE.
[2020-11-10 20:00] VITALS: BP 113/52
--- NOTE | 2020-11-10 21:00 | NUR ---
DUE MEDS GIVEN. PATIENT IS QUIET AND NOT COMBATIVE. RELEASED FROM RESTRAINTS AT THIS TIME. FREQUENT VISUAL ROUNDS BY ALL STAFF.
[2020-11-10] MEDS: PREGABALIN 25 MG CAP PO SCH (21:30)
[2020-11-10] MEDS: ATORVASTATIN 80 MG TAB PO SCH (21:30)
--- NOTE | 2020-11-10 23:00 | NUR ---
INCONTINENT CARE RENDERED WITH GLASS VIAL FILLER AT BEDSIDE. TURNED AND REPOSITIONED TO MAINTAIN SKIN INTEGRITY. SAFETY PRECAUTIONS IN PLACE. ISOLATION PRECAUTIONS OBSERVED BY ALL STAFF.
[2020-11-11] VITALS: BP 113/84
[2020-11-11] MEDS: LORazepam 2 MG/ML VIAL IM/IVP PRN (00:15)
--- NOTE | 2020-11-11 01:00 | NUR ---
MADE ROUNDS. PATIENT IS ASLEEP. NO S/S ACUTE DISTRESS. ISOLATION PRECAUTIONS OBSERVED BY ALL STAFF. SAFETY PRECAUTIONS IN PLACE.
[2020-11-11] MEDS: HYDRAGUARD CREAM TP SCH ×2 (01:27→13:41)
--- NOTE | 2020-11-11 03:00 | NUR ---
PATIENT IS ASLEEP. NO S/S ACUTE DISTRESS. FREQUENT ROUNDS. ISOLATION PRECAUTIONS OBSERVED BY ALL STAFF. SAFETY PRECAUTIONS IN PLACE.
[2020-11-11] MEDS: DEXTROSE 5% 1,000 ML IV SCH ×3 (03:45→21:00)
[2020-11-11 04:00] VITALS: BP 97/53
--- NOTE | 2020-11-11 05:00 | NUR ---
INCONTINENT CARE RENDERED. NO S/S ACUTE DISTRESS. BSWR HAVE BEEN OFF ALL NIGHT. PATIENT HAD NO EPISODES OF REMOVING LINES OR BEING COMBATIVE. ISOLATION PRECAUTIONS OBSERVED BY ALL STAFF. SAFETY PRECAUTIONS IN PLACE.
[2020-11-11] MEDS: INSULIN LISPRO SLIDING SCALE 100 UNITS/ML VIAL SUBQ PRN ×4 (06:47→23:09)
[2020-11-11] MEDS: BLOOD GLUCOSE MONITORING 1 DEV DEV FS SCH ×4 (06:47→22:30)
--- NOTE | 2020-11-11 07:00 | NUR ---
ENDORSED PATIENT TO AM SHIFT NURSE FOR CONTINUITY OF CARE.
--- NOTE | 2020-11-11 07:20 | NUR ---
RECEIVED PT FROM AMERICAN HISTORY PROFESSOR NURSE, PT HAS JOSHUA 22G IV RUNNING D5 AT 125 ML/HR, PT IS RESTING IN BED, NO SIGNS OF DISTRESS NOTED, 15 L OXIMIZER, SAFETY AND FALL PRECAUTIONS IN PLACE, WILL CONTINUE TO MONITOR.
[2020-11-11 08:00] VITALS: BP 101/55
[2020-11-11 08:51] LABS: BASOPHILS % (AUTO) 0.2 % (0.0-2.0); HEMATOCRIT 24.3 % (36-52); LYMPHOCYTES # (AUTO) 0.1 K/uL (2.0-11.5); LYMPHOCYTES % (AUTO) 1.1 % (20.5-51.1); MEAN CORPUSCULAR HEMOGLOBIN 29 pg (27-31); MEAN CORPUSCULAR HGB CONC 33 g/dL (33-37); MEAN CORPUSCULAR VOLUME 86.3 fL (80-94); MONOCYTES # (AUTO) 0.1 K/uL (0.8-1.0); MONOCYTES % (AUTO) 0.8 % (1.7-9.3); NEUTROPHILS % (AUTO) 97.9 % (42.2-75.2); PLATELET COUNT (AUTO) 245 K/uL (140-450); RED BLOOD CELL COUNT(AUTO) 2.81 MIL/uL (4.20-6.10); RED CELL DISTRIBUTION WIDTH 16.7 % (11.6-13.7); WHITE BLOOD COUNT (AUTO) 13.3 K/uL (4.8-10.8)
[2020-11-11] MEDS: amLODIPine 5 MG TAB PO SCH (09:00)
[2020-11-11] MEDS: BICALUTAMIDE 50 MG TAB PO SCH (09:00)
[2020-11-11] MEDS: LOSARTAN 50 MG TAB PO SCH (09:00)
[2020-11-11] MEDS: hydroCHLOROthiazide 25 MG TAB PO SCH (09:00)
[2020-11-11] MEDS: METOPROLOL SUCCINATE 50 MG TABER PO SCH (09:00)
[2020-11-11 09:17] LABS: ALBUMIN 2.5 g/dL (3.4-5.0); ANION GAP 17.3 (8-16); ASPARTATE AMINOTRANSFERASE 129 U/L (15-37); CARBON DIOXIDE 21.5 mmol/L (21-32); CHLORIDE 120 mmol/L (98-107); CREATININE 2.1 mg/dL (0.6-1.3); GLUCOSE 367 mg/dL (74-106); POTASSIUM 3.8 mmol/L (3.5-5.1); SODIUM SERUM 155 mmol/L (136-145); TOTAL BILIRUBIN 0.5 mg/dL (0.0-1.0)
[2020-11-11 09:47] LABS: UREA NITROGEN, BLOOD 72 mg/dL (7-18)
[2020-11-11] MEDS: VITAMIN D 400 IU TAB PO SCH (10:16)
[2020-11-11] MEDS: ASCORBIC ACID 500 MG TAB PO SCH (10:16)
[2020-11-11] MEDS: TAMSULOSIN 0.4 MG CAP PO SCH ×2 (10:17→21:00)
[2020-11-11] MEDS: allopurinoL 100 MG TAB PO SCH (10:17)
[2020-11-11] MEDS: GABAPENTIN 100 MG CAP PO SCH (10:17)
[2020-11-11] MEDS: ASPIRIN 81 MG TAB.CHEW PO SCH (10:17)
[2020-11-11] MEDS: DEXAMETHASONE 4 MG/ML VIAL IVP SCH (10:18)
[2020-11-11] MEDS: ENOXAPARIN 30 MG/0.3 ML SYR SUBQ SCH (10:21)
--- NOTE | 2020-11-11 11:05 | NUR ---
SCHEDULED MEDICATIONS ADMINISTERED, HELP BP MEDICATIONS DUE TO LOW HR AND BP HR 59, BP 103/56, PT TOOK A LONG TIME TO TAKE MEDICATIONS, BEGAN TO REFUSE MEDICATIONS, WILL ATTEMPT TO ADMINISTER PROSTATE CA MED IN A FEW HRS TO SEE IF HE IS MORE WILLING TO TAKE, WILL CONTINUE TO MONITOR
[2020-11-11 12:00] VITALS: BP 113/69
[2020-11-11] MEDS: SKINTEGRITY HYDROGEL TP SCH (13:41)
--- NOTE | 2020-11-11 13:42 | NUR ---
SCHEDULED MEDICATIONS ADMINISTERED, PT RESTING IN BED, INSULIN COVERAGE NEEDED 8 UNITS, WILL CONTINUE TO MONITOR.
[2020-11-11 16:00] VITALS: BP 97/40
[2020-11-11] MEDS: ALBUTEROL HFA MDI 90 MCG/ACTUATION 8 GM INH SCH ×2 (16:00→20:00)
--- NOTE | 2020-11-11 16:48 | NUR ---
11/11/20 RD FOLLOW UP COMPLETED PLEASE REFER TO NUTRITION PROGRESS NOTES UNDER CARE ACTIVITY FOR ESTIMATED NUTRITIONAL NEEDS. RD RECOMMENDATIONS: 1. RECOMMEND 60GM CCHO RENAL DIET,PUREE. 2. CONTINUE NEPRO BID 3. F/U 2-3 DAYS; HIGH RISK ALEYDA MCCRAY MBA, RD
--- NOTE | 2020-11-11 17:34 | NUR ---
INSULIN COVERAGE NEEDED 6 UNITS FOR 268 GLUCOSE, PT IS RESTING IN BED, EDUCATION PROVIDED, WILL CONTINUE TO MONITOR.
--- NOTE | 2020-11-11 19:35 | NUR ---
ENDORSED PT TO RESOURCE MANAGER NURSE FOR CONTINUITY OF CARE
[2020-11-11 20:00] VITALS: BP 93/39
[2020-11-11] MEDS: PREGABALIN 25 MG CAP PO SCH (21:00)
[2020-11-11] MEDS: ATORVASTATIN 80 MG TAB PO SCH (21:00)
--- NOTE | 2020-11-11 21:00 | NUR ---
MUMBLING , HIS EYES ARE CLOSED MOST OF ATHE TIME . I TRIED TO GIVE HIM ORAL PILLS BUT SEEMS THERE IS PROBLEM W/ REGARDS TO SWALLOWING . PILL NOT GIVEN - WILL REFER TO DR. MACIAS
--- NOTE | 2020-11-11 22:00 | NUR ---
BP RE CHECK 90 / 60 - ON TELE MONITOR
[2020-11-12] VITALS: BP 69/46
--- NOTE | 2020-11-12 | NUR ---
BP RE CHECK - 90/ 59 - WILL CONT. TO MONITOR
[2020-11-12] MEDS: HYDRAGUARD CREAM TP SCH ×2 (01:00→13:00)
--- NOTE | 2020-11-12 02:00 | NUR ---
SLEEPING , O 2 SAT WNL - 90 %
[2020-11-12 04:00] VITALS: BP 94/24
--- NOTE | 2020-11-12 04:00 | NUR ---
BP 90 / 45 - WELL DILUTED URINE NOTICE ON DIAPER THE DIAPER ID FULLY SOAKED - W/ BLOOD STAINED U.O - WILL REFER TO DR. MACIAS
--- NOTE | 2020-11-12 05:00 | NUR ---
THE ON GOING IVF DEC. FROM 125CC/HR TO 70CC/HR ORDERED. PER DR. MACIAS REFER / UPDATE PT . TO DR. RUIZ AND DR. NAIR
[2020-11-12] MEDS: DEXTROSE 5% 1,000 ML IV SCH ×2 (05:15→23:20)
[2020-11-12] MEDS: ALENDRONATE SODIUM 70 MG TAB PO SCH (06:00)
--- NOTE | 2020-11-12 06:00 | NUR ---
BOTH DR. RUIZ AND DR NAIR UPDATING THAT THE PT HAD BLOOD STAINED URINE AND WELL DILUTED URINE AND LOW BP - - WILL ENDORSE TO AM NURSE SHE HAVE TO WAIT THE FURTHER ORDERS FRM . THIS BOTH DOCTORS .
[2020-11-12] MEDS: BLOOD GLUCOSE MONITORING 1 DEV DEV FS SCH ×4 (06:16→23:00)
[2020-11-12] MEDS: INSULIN LISPRO SLIDING SCALE 100 UNITS/ML VIAL SUBQ PRN ×4 (06:17→23:41)
--- NOTE | 2020-11-12 07:20 | NUR ---
ENDORSED TO AM SHIFT - PT - AWAKEABLE , W/ LATEST TELE TRACING - SR LATEST BP 80 /50
--- NOTE | 2020-11-12 07:20 | NUR ---
RECEIVED PT FROM CENTRAL STERILE TECH NURSE, NURSE STATED PT BP WAS LOW (80'S/50S), i UPDATED MD'S THIS MORNING, PT IS NOW RESTING IN BED, TELE MONITOR ON, SAFETY AND FALL PRECAUTIONS IN PLACE, WILL CONTINUE TO MONITOR.
--- NOTE | 2020-11-12 07:56 | NUR ---
UPDATED DR MACIAS ON PT STATUS, LOW BP, AND UPDATED DR. RUIZ WITH RESULTS OF BLADDER SCAN, 206 ML VOLUME, WILL CONTINUE TO MONITOR.
[2020-11-12 07:58] LABS: BASOPHILS % (AUTO) 0.2 % (0.0-2.0); HEMATOCRIT 24.7 % (36-52); HEMOGLOBIN 7.9 g/dL (12.0-18.0); LYMPHOCYTES # (AUTO) 0.2 K/uL (2.0-11.5); LYMPHOCYTES % (AUTO) 1.3 % (20.5-51.1); MEAN CORPUSCULAR HEMOGLOBIN 28 pg (27-31); MEAN CORPUSCULAR HGB CONC 32 g/dL (33-37); MEAN CORPUSCULAR VOLUME 88.4 fL (80-94); MONOCYTES # (AUTO) 0.3 K/uL (0.8-1.0); NEUTROPHILS # (AUTO) 14.3 K/uL (1.8-7.7); NEUTROPHILS % (AUTO) 96.5 % (42.2-75.2); PLATELET COUNT (AUTO) 254 K/uL (140-450); RED CELL DISTRIBUTION WIDTH 16.7 % (11.6-13.7); WHITE BLOOD COUNT (AUTO) 14.9 K/uL (4.8-10.8)
[2020-11-12 08:00] VITALS: BP 112/51
--- NOTE | 2020-11-12 08:15 | NUR ---
UPDATED DR MACIAS NOW ON CURRENT VITALS, 24 RR, 112/51 BP, 113 HR, 96.6 TEMP, 88% O2, WILL AWAIT ORDERS FROM .
[2020-11-12] MEDS ORDERED: NACL 0.9% 500 ML IV ONE (08:20)
[2020-11-12 08:28] LABS: ALBUMIN 2.4 g/dL (3.4-5.0); ANION GAP 16.9 (8-16); ASPARTATE AMINOTRANSFERASE 85 U/L (15-37); CARBON DIOXIDE 22.6 mmol/L (21-32); CHLORIDE 115 mmol/L (98-107); CREATININE 2.4 mg/dL (0.6-1.3); POTASSIUM 4.5 mmol/L (3.5-5.1); SODIUM SERUM 150 mmol/L (136-145); TOTAL BILIRUBIN 0.5 mg/dL (0.0-1.0)
--- NOTE | 2020-11-12 08:37 | NUR ---
ORDER RECEIVED TO STOP D5 AND START [address] MACIAS, WILL CONTINUE TO MONITOR.
[2020-11-12 08:49] LABS: GLUCOSE 441 mg/dL (74-106); UREA NITROGEN, BLOOD 84 mg/dL (7-18)
--- NOTE | 2020-11-12 08:55 | NUR ---
RECEIVED ORDER NOW TO DC NS BOLUS DUE TO UPDATED BP, WILL DC NOW.
[2020-11-12] MEDS: ASCORBIC ACID 500 MG TAB PO SCH (09:00)
[2020-11-12] MEDS: ASPIRIN 81 MG TAB.CHEW PO SCH (09:00)
[2020-11-12] MEDS: METOPROLOL SUCCINATE 50 MG TABER PO SCH (09:00)
[2020-11-12] MEDS: ENOXAPARIN 30 MG/0.3 ML SYR SUBQ SCH (09:00)
[2020-11-12] MEDS: amLODIPine 5 MG TAB PO SCH (09:00)
[2020-11-12] MEDS: VITAMIN D 400 IU TAB PO SCH (09:00)
[2020-11-12] MEDS: TAMSULOSIN 0.4 MG CAP PO SCH ×2 (09:00→21:00)
[2020-11-12] MEDS: LOSARTAN 50 MG TAB PO SCH (09:00)
[2020-11-12] MEDS: BICALUTAMIDE 50 MG TAB PO SCH (09:00)
[2020-11-12] MEDS: hydroCHLOROthiazide 25 MG TAB PO SCH (09:00)
[2020-11-12] MEDS: PANTOPRAZOLE 40 MG TABEC PO SCH (09:00)
[2020-11-12] MEDS: DEXAMETHASONE 4 MG/ML VIAL IVP SCH (09:00)
[2020-11-12] MEDS: GABAPENTIN 100 MG CAP PO SCH (09:00)
[2020-11-12 12:00] VITALS: BP 124/40
[2020-11-12] MEDS: ALBUTEROL HFA MDI 90 MCG/ACTUATION 8 GM INH SCH ×3 (12:00→20:00)
--- NOTE | 2020-11-12 12:05 | NUR ---
PT IS REFUSING FOOD AND WATER BY MOUTH, WILL NOTIFY MD AND WILL CONTINUE TO MONITOR
--- NOTE | 2020-11-12 12:12 | NUR ---
CANNOT GIVE MEDS, PT IS REFUSING ANYTHING BY MOUTH
--- NOTE | 2020-11-12 12:41 | NUR ---
BS 406, NOTIFIED MD MACIAS, AWAITING ORDERS
[2020-11-12] MEDS: SKINTEGRITY HYDROGEL TP SCH (13:00)
--- NOTE | 2020-11-12 13:00 | NUR ---
ORDERED 10 UNITS HUMALOG, WILL ADMINISTER NOW.
[2020-11-12 16:00] VITALS: BP 102/52
--- NOTE | 2020-11-12 16:26 | NUR ---
*ST: Bedside Swallow Evaluation* Pt is 80 yo M BIBA from [facility] 11/06/2020 for ALOC and hypoxia. Work-up noted +COVID-19 PCR 11/06. PMHx ESRD on HD, CAD, HLD, GERD, prostate CA, BPH, DM2, neuropathy, osteoporosis. CXR 11/06 - bilat patchy infiltrates. CTH 11/07 - mild atrophy c chronic changes; (-) acute. Cleared with RN, Laura, for BDSE. Per RN, pt would not open mouth to receive medications. RN noted residual material in mouth (?residue from yesterday). Per EMR, pt generally kept his mouth closed to POs offered across at least 2 days. Per chart, Pt received MS/Thin Liquids at [facility] prior to admit. Pt seen bedside, on +COVID-19 isolation precautions, on 15L oxymizer, eyes closed, tired. Pt slightly opened his eyes ~1s x2 with DAY CARE DIRECTOR called, "Appa" ("Father" in Swedish) but Pt did not sustain attention. Noted very dry oral mucosa with reddish-brown dried material in sublingual sulcus, along surface of tongue. Oral care provided with Pt consistently engaging in oral defensiveness. Apple sauce by tsp x2 trialed with Pt generally opening his mouth to receive boli, stripping >80% of bolus from tsp, with apple sauce seemingly remaining where placed in oral cavity. Follow-up nectar thick apple juice by tsp x2 given with Pt closing his mouth, suspect lingual pumping, laryngeal excursion observed, 2-3 swallows per bolus. Pt eventually engaged in prolonged, weak, gurgly cough. DAY CARE DIRECTOR attempted to use [place] to suction but noted incomplete suction set up (i.e., [place], tubing, and cannister in place but no suction adapter set-up in wall). Further PO trials deferred. Results d/w pts RN. RN verbalized understanding and started calling RT for suction adapter based on DAY CARE DIRECTOR report. P: Rec NPO, oral care every 2-4 hrs, suction as needed Rec consider starting non-oral means of nutrition and medications if aligned with Pt/family wishes MD may re-order swallow eval if Pts respiratory status and mentation improves -Mariela Pitt MA, [facility]-DAY CARE DIRECTOR Addendum: 11/12/20 at [address] Amended: Links added.
--- NOTE | 2020-11-12 18:04 | NUR ---
INSULIN COVERAGE NEEDED FOR BS 269, 6 UNITS ADMINISTERED, PT IS RESTING IN BED, WILL CONTINUE TO MONITOR.
--- NOTE | 2020-11-12 19:20 | NUR ---
ENDORSED PT TO COURT ADMINISTRATOR NURSE FOR CONTINUITY OF CARE.
[2020-11-12 20:00] VITALS: BP 105/51
[2020-11-12] MEDS: PREGABALIN 25 MG CAP PO SCH (21:00)
[2020-11-12] MEDS: ATORVASTATIN 80 MG TAB PO SCH (21:00)
--- NOTE | 2020-11-12 21:00 | NUR ---
BP RE CHECK - 112/ 60 - NO S/SX OF ACUTE DISTRESS NOTED - PT HAS STRONG MUSCLE TONE - I GRAB HIS HAND TO CHECK BLOOD SUGAR - PT RESISTANT - PRICK EAR [place]NA - FOR ACCU CHECK INSTEAD OF FINGERTIP .
[2020-11-13] VITALS: BP 99/25
--- NOTE | 2020-11-13 | NUR ---
MADE ROUNDS , LOW DBP NOTED - CHANGE THE POSITION OF THE PT . CHECK THE IV SITE - IVF INFUSING WELL - WILL RE ASSESS THE PT'S BP . - ON TELE MONITOR - SR .
[2020-11-13] MEDS: HYDRAGUARD CREAM TP SCH ×2 (01:00→13:31)
--- NOTE | 2020-11-13 01:00 | NUR ---
BP RE CHECKED - 91/60 - WILL CONT . TO MONITOR - ON TELE MONITOR .
[2020-11-13 04:00] VITALS: BP 112/16
[2020-11-13] MEDS: ALBUTEROL HFA MDI 90 MCG/ACTUATION 8 GM INH SCH ×6 (04:00→20:00)
--- NOTE | 2020-11-13 04:00 | NUR ---
BP RE CHECK - / 59 - ON TELE MONITOR - SR Addendum: 11/13/20 at 0831 by Nadiya Leach RN O2 SAT WNL .
[2020-11-13] MEDS: BLOOD GLUCOSE MONITORING 1 DEV DEV FS SCH ×4 (06:00→16:30)
--- NOTE | 2020-11-13 06:00 | NUR ---
MADE ROUNDS NO S/SX OF ACUTE DISTRESS
[2020-11-13] MEDS: INSULIN LISPRO SLIDING SCALE 100 UNITS/ML VIAL SUBQ PRN ×3 (07:12→18:48)
--- NOTE | 2020-11-13 07:30 | NUR ---
ENDORSED - PT - STABLE - ENDORSED PT FOR CONDOM CATH - FOR URINE COLLECTION
--- NOTE | 2020-11-13 07:35 | NUR ---
RECEIVED REPORT FROM NIGHTSHIFT NURSE. PT RESTING IN BED. ABLE TO MAKE NEEDS KNOWN. RESPIRATIONS EVEN AND UNLABORED WITH NO SOB OR RESPIRATORY DISTRESS. SKIN WARM AND DRY TO TOUCH. IV SITE IN R UPPER ARM 22G IS CLEAN, DRY, AND INTACT. SAFETY MEASURES IN PLACE. WILL CONTINUE TO MONITOR
[2020-11-13 08:00] VITALS: BP 107/59
[2020-11-13 08:37] LABS: BASOPHILS % (AUTO) 0.2 % (0.0-2.0); HEMATOCRIT 24.4 % (36-52); LYMPHOCYTES # (AUTO) 0.3 K/uL (2.0-11.5); LYMPHOCYTES % (AUTO) 2.3 % (20.5-51.1); MEAN CORPUSCULAR HEMOGLOBIN 28 pg (27-31); MEAN CORPUSCULAR HGB CONC 33 g/dL (33-37); MEAN CORPUSCULAR VOLUME 86.6 fL (80-94); MONOCYTES # (AUTO) 0.3 K/uL (0.8-1.0); MONOCYTES % (AUTO) 2.5 % (1.7-9.3); NEUTROPHILS # (AUTO) 11.5 K/uL (1.8-7.7); PLATELET COUNT (AUTO) 255 K/uL (140-450); RED BLOOD CELL COUNT(AUTO) 2.81 MIL/uL (4.20-6.10); WHITE BLOOD COUNT (AUTO) 12.1 K/uL (4.8-10.8)
[2020-11-13] MEDS: ASPIRIN 81 MG TAB.CHEW PO SCH (08:49)
[2020-11-13] MEDS: DEXAMETHASONE 4 MG/ML VIAL IVP SCH (08:49)
[2020-11-13] MEDS: GABAPENTIN 100 MG CAP PO SCH (08:50)
[2020-11-13] MEDS: amLODIPine 5 MG TAB PO SCH (08:50)
[2020-11-13] MEDS: TAMSULOSIN 0.4 MG CAP PO SCH ×2 (08:50→21:00)
[2020-11-13] MEDS: BICALUTAMIDE 50 MG TAB PO SCH (08:50)
[2020-11-13] MEDS: VITAMIN D 400 IU TAB PO SCH (08:50)
[2020-11-13] MEDS: PANTOPRAZOLE 40 MG TABEC PO SCH (08:50)
[2020-11-13] MEDS: allopurinoL 100 MG TAB PO SCH (08:51)
[2020-11-13] MEDS: METOPROLOL SUCCINATE 50 MG TABER PO SCH (08:51)
[2020-11-13] MEDS: ASCORBIC ACID 500 MG TAB PO SCH (08:51)
[2020-11-13] MEDS: ENOXAPARIN 30 MG/0.3 ML SYR SUBQ SCH (09:29)
--- NOTE | 2020-11-13 09:36 | NUR ---
PT NPO UNABLE TO ADMINISTERE PO MEDS. ADMINISTERED SCHED MED PRESCRIBED PER MD ORDER. PT TOLERATED WELL. MEDICATION EDUCATION PERFORMED. PT CONFUSED AND UNABLE TO VERBALIZE UNDERSTANDING. SAFETY MEASURES IN PLACE. WILL CONTINUE TO MONITOR
[2020-11-13] MEDS: DEXTROSE 5% 1,000 ML IV SCH ×2 (10:22→21:32)
[2020-11-13 10:23] LABS: MAGNESIUM 2.1 mg/dL (1.8-2.4); PHOSPHORUS 2.8 mg/dL (2.5-4.9)
[2020-11-13 10:34] LABS: ALBUMIN 2.5 g/dL (3.4-5.0); ANION GAP 17.6 (8-16); ASPARTATE AMINOTRANSFERASE 72 U/L (15-37); CARBON DIOXIDE 21.8 mmol/L (21-32); CHLORIDE 116 mmol/L (98-107); CREATININE 2.1 mg/dL (0.6-1.3); GLUCOSE 329 mg/dL (74-106); POTASSIUM 4.4 mmol/L (3.5-5.1); SODIUM SERUM 151 mmol/L (136-145); TOTAL BILIRUBIN 0.7 mg/dL (0.0-1.0)
[2020-11-13 11:38] LABS: UREA NITROGEN, BLOOD 73 mg/dL (7-18)
--- NOTE | 2020-11-13 11:45 | NUR ---
PT RESTING IN BED. FLACC 0. RESPIRATIONS EVEN AND UNLABORED WITH NO SOB OR RESPIRATORY DISTRESS. SKIN WARM AND DRY TO TOUCH. SAFETY MEASURES IN PLACE. WILL CONTINUE TO MONITOR
[2020-11-13 12:00] VITALS: BP 114/60
--- NOTE | 2020-11-13 12:27 | NUR ---
1140: RECEIVED A CALL FROM [facility], INFORMING ME OF CRITICAL LAB BUN 73. DR. MACIAS MADE AWARE.
[2020-11-13] MEDS: SKINTEGRITY HYDROGEL TP SCH (13:31)
[2020-11-13 16:00] VITALS: BP 96/54
--- NOTE | 2020-11-13 19:30 | NUR ---
ENDORSED TO NIGHTSHIFT FOR CONTINUITY OF CARE. PT IS STABLE
[2020-11-13 20:00] VITALS: BP 141/88
[2020-11-13] MEDS: PREGABALIN 25 MG CAP PO SCH (21:00)
[2020-11-13] MEDS: ATORVASTATIN 80 MG TAB PO SCH (21:00)
--- NOTE | 2020-11-13 21:30 | NUR ---
ACCU CHECK - 124 - NO INSULIN COVERAGE - IVF D5W INFUSING WELL - NPO .
[2020-11-14] VITALS: BP 146/44
[2020-11-14] MEDS: HYDRAGUARD CREAM TP SCH ×2 (01:00→13:18)
--- NOTE | 2020-11-14 03:00 | NUR ---
PUT CONDOM CATH - FOR URINE SPECIMEN COLLECTION - WILL ENDORSE .
[2020-11-14 04:00] VITALS: BP_SYST 112; BP_SYST 143; BP_DIAS 54; BP_DIAS 65
[2020-11-14] MEDS: ALBUTEROL HFA MDI 90 MCG/ACTUATION 8 GM INH SCH ×6 (04:00→20:00)
--- NOTE | 2020-11-14 06:00 | NUR ---
ACCU CHECK 294 - INSULIN GIVEN ACCORDING TO PROTOCOL . WILL CONT. TO MONITOR .
[2020-11-14] MEDS: DEXTROSE 5% 1,000 ML IV SCH ×3 (06:49→21:53)
[2020-11-14] MEDS: BLOOD GLUCOSE MONITORING 1 DEV DEV FS SCH ×4 (06:58→21:37)
[2020-11-14] MEDS: INSULIN LISPRO SLIDING SCALE 100 UNITS/ML VIAL SUBQ PRN ×4 (06:59→21:27)
--- NOTE | 2020-11-14 07:40 | NUR ---
ENDORSED - PT - STABLE . Addendum: 11/14/20 at 0756 by Nadiya Leach RN NO SIGNS OF INJURIES FROM RESTRAINT NOTED FOR THE WHIOLE COURSE OF MY SHIFT . ONLY OLD BRUISES ON THE BACK - NOTED - RUBIN Gomez
[2020-11-14 08:00] VITALS: BP 147/55
[2020-11-14] MEDS: ASPIRIN 81 MG TAB.CHEW PO SCH (09:00)
[2020-11-14] MEDS: amLODIPine 5 MG TAB PO SCH (09:00)
[2020-11-14] MEDS: METOPROLOL SUCCINATE 50 MG TABER PO SCH (09:00)
[2020-11-14] MEDS: GABAPENTIN 100 MG CAP PO SCH (09:00)
[2020-11-14] MEDS: TAMSULOSIN 0.4 MG CAP PO SCH ×2 (09:00→20:42)
[2020-11-14] MEDS: ASCORBIC ACID 500 MG TAB PO SCH (09:00)
[2020-11-14] MEDS: PANTOPRAZOLE 40 MG TABEC PO SCH (09:00)
[2020-11-14] MEDS: BICALUTAMIDE 50 MG TAB PO SCH (09:00)
[2020-11-14] MEDS: VITAMIN D 400 IU TAB PO SCH (09:00)
[2020-11-14 09:25] LABS: BASOPHILS % (AUTO) 0.2 % (0.0-2.0); HEMATOCRIT 23.2 % (36-52); HEMOGLOBIN 7.5 g/dL (12.0-18.0); LYMPHOCYTES # (AUTO) 0.2 K/uL (2.0-11.5); LYMPHOCYTES % (AUTO) 1.2 % (20.5-51.1); MEAN CORPUSCULAR HEMOGLOBIN 28 pg (27-31); MEAN CORPUSCULAR HGB CONC 32 g/dL (33-37); MEAN CORPUSCULAR VOLUME 86.7 fL (80-94); MONOCYTES # (AUTO) 0.3 K/uL (0.8-1.0); NEUTROPHILS # (AUTO) 12.6 K/uL (1.8-7.7); NEUTROPHILS % (AUTO) 96.6 % (42.2-75.2); PLATELET COUNT (AUTO) 230 K/uL (140-450); RED BLOOD CELL COUNT(AUTO) 2.68 MIL/uL (4.20-6.10); RED CELL DISTRIBUTION WIDTH 16.3 % (11.6-13.7); WHITE BLOOD COUNT (AUTO) 13.1 K/uL (4.8-10.8)
[2020-11-14 09:37] LABS: ALBUMIN 2.2 g/dL (3.4-5.0); ANION GAP 17.9 (8-16); ASPARTATE AMINOTRANSFERASE 66 U/L (15-37); CARBON DIOXIDE 21.5 mmol/L (21-32); CHLORIDE 116 mmol/L (98-107); GLUCOSE 306 mg/dL (74-106); POTASSIUM 3.4 mmol/L (3.5-5.1); SODIUM SERUM 152 mmol/L (136-145); TOTAL BILIRUBIN 0.6 mg/dL (0.0-1.0)
[2020-11-14] MEDS: DEXAMETHASONE 4 MG/ML VIAL IVP SCH (09:53)
[2020-11-14] MEDS: ENOXAPARIN 30 MG/0.3 ML SYR SUBQ SCH (09:53)
[2020-11-14 10:25] LABS: UREA NITROGEN, BLOOD 65 mg/dL (7-18)
[2020-11-14 12:00] VITALS: BP 146/57
[2020-11-14] MEDS: SKINTEGRITY HYDROGEL TP SCH (13:18)
--- NOTE | 2020-11-14 13:20 | NUR ---
SCHEDULED MEDICATIONS DUE GIVEN. WILL CONTINUE TO MONITOR .
--- NOTE | 2020-11-14 14:00 | NUR ---
PATIENT O2 TITRATED TO 6L OXIMIZER AND SATURATION IS 93-94%. WILL CONTINUE TO MONITOR.
--- NOTE | 2020-11-14 14:04 | NUR ---
DC PLANNIN YRS OLD MALE PATIENT WAS ADMITTED FROM [facility] WITH A DX OF COVID PNEUMONIA AND RESP FAILURE. COVID PCR POSITIVE. ON OXYMIZER 15L SATING 93% , STARTED COVID TREATMENT AND SEEN BY ALL CHILD CARE EDUCATION COORDINATOR ID, PULMO, NEPHRO, AND UROLOGIST. DC PLAN TO GO BACK TO [facility] WHEN STABLE. CM TO FOLLOW Addendum: 11/16/20 at 1353 by Angela Baird RN DC PLANNING: NEW ORDER FOR [facility] FAXED TO [facility] CM TO FOLLOW Addendum: 11/16/20 at 1646 by Angela Baird RN DC PLANNING: PER ARJUN FROM [facility] NO BED AVAILABLE. WILL F/U TOMORROW C M TO FOLLOW Addendum: 11/17/20 at 0944 by Fauzia Aguirre CM RIKI GUZMAN: FOLLOWED UP WITH ARJUN FROM [facility] NO AVAILABLE BEDS. Addendum: 11/17/20 at 1314 by Fauzia Aguirre CM RIKI GUZMAN: FAXED UPDATED CLINICALS TO [facility]. Addendum: 11/18/20 at 0956 by Angela Baird RN DC PLANNING: F/U WITH ARJUN AT [facility] FAXED THE LATEST CLINICALS STILL NO BED AVAILABLE AT [facility]. H/H 5.6/17.1 2 UNITS PRBC TRANSFUSED WILL CHECK H/H. CM TO FOLLOW. Addendum: 11/21/20 at 1441 by Fauzia Aguirre CM DC FAMILY WORKER: FAXED UPDATED PROGRESS NOTES TO [facility] Addendum: 11/21/20 at 1528 by Angela Baird RN DC PLANNING: RECEIVED A CALL FROM ARJUN AT [facility] STILL AWAITING FOR BED AVAILABLE. STILL ON OXYMIZER 8L SATING 92%. SCHEDULE FOR G-TUBE PLACEMENT WITH DR SHAH. CORTEZ TO FOLLOW
--- NOTE | 2020-11-14 15:41 | NUR ---
11/14/20 RD FOLLOW UP COMPLETED PLEASE REFER TO NUTRITION ASSESSMENT UNDER CARE ACTIVITY FOR ESTIMATED NUTRITIONAL NEEDS. 1. CONTINUE NPO PER APPLIED PSYCHOLOGY TEACHER 2. CONSIDER RE-EVALUATION OF SWALLOWING; IF FAILS AGAIN CONSIDER ENTERAL NUTRITION 3. CONSIDER GLUCERNA 1.5 @ 45 X 24 HR. THIS WILL PROVIDE 1620 KCAL AND 89 GM OF PROTEIN MEETING 100% OF ESTIMATED KCAL AND PROTEIN NEEDS; FLUSH [address] TO FOLLOW-UP 2-3 DAYS, HIGH RISK NICOLETTE RANGEL RD
[2020-11-14 16:00] VITALS: BP 144/60
--- NOTE | 2020-11-14 17:50 | NUR ---
SCHEDULED MEDICATIONS DUE GIVEN. WILL CONTINUE TO MONITOR.
--- NOTE | 2020-11-14 19:25 | NUR ---
RECEIVED PT AWAKE ON BED, AAOX1, CONFUSED AND UNABLE TO FOLLOW COMMANDS, ON O2 VIA OXIMIZER AT 5L WITH 96% SAT, IVF INFUSING WELL, MAINTAIN ON NPO STATUS, FOR SWALLOW EVAL TOMORROW, MAL MITTEN IN PLACE DUE TO TENDENCY TO PULL OUT O2 AND TUBINGS, WITH CONDOM CATH DRAINING WELL, MAINTAIN ON DROPLET PRECAUTION, WILL REPOSITION Q2H AND OFFLOAD PRESSURE AREAS, FREQUENT ROUNDS WILL BE MADE.
[2020-11-14 20:00] VITALS: BP 120/55
[2020-11-14] MEDS: ATORVASTATIN 80 MG TAB PO SCH (20:42)
[2020-11-15] VITALS: BP 136/88
--- NOTE | 2020-11-15 01:00 | NUR ---
SAT-88%, O2 INCREASED TO 7L VIA OXIMIZER, SAT WENT UP TO 90%, MONITORED CLOSELY.
[2020-11-15] MEDS: HYDRAGUARD CREAM TP SCH ×2 (01:29→13:57)
[2020-11-15 04:00] VITALS: BP 134/65
[2020-11-15] MEDS: ALBUTEROL HFA MDI 90 MCG/ACTUATION 8 GM INH SCH ×5 (04:00→16:00)
[2020-11-15] MEDS: DEXTROSE 5% 1,000 ML IV SCH ×2 (04:36→11:45)
[2020-11-15] MEDS: INSULIN LISPRO SLIDING SCALE 100 UNITS/ML VIAL SUBQ PRN ×4 (05:59→21:07)
[2020-11-15] MEDS: BLOOD GLUCOSE MONITORING 1 DEV DEV FS SCH ×4 (07:08→21:07)
--- NOTE | 2020-11-15 07:25 | NUR ---
PT SLEEPING, NO SIGNS OF DISTRESS, REPORT GIVEN TO KIMI MCKEON FOR CONTINUITY OF CARE.
--- NOTE | 2020-11-15 07:27 | NUR ---
RECEIVED REPORT FROM NIGHT NURSE PATIENT IS AAOX1 ON 7LPM OXIMIZER SATURATION AT 89-93%, ON CONDOM CATHETER, WITH BILATERAL WRIST RESTRAIN MITTENS,FOR SWALLOW EVAL, SKIN NON INTACT, IV INTACT ON RIGHT UA, PATIENT ON NPO. SAFETY MEASURES IN PLACE AND CALL LIGHT WITHIN REACH.
[2020-11-15 08:00] VITALS: BP 132/47
[2020-11-15 08:58] LABS: ALBUMIN 2.2 g/dL (3.4-5.0); ANION GAP 18.7 (8-16); ASPARTATE AMINOTRANSFERASE 58 U/L (15-37); CARBON DIOXIDE 21.9 mmol/L (21-32); CHLORIDE 115 mmol/L (98-107); GLUCOSE 357 mg/dL (74-106); POTASSIUM 3.6 mmol/L (3.5-5.1); SODIUM SERUM 152 mmol/L (136-145); TOTAL BILIRUBIN 0.6 mg/dL (0.0-1.0)
[2020-11-15] MEDS: allopurinoL 100 MG TAB PO SCH (09:00)
[2020-11-15] MEDS: VITAMIN D 400 IU TAB PO SCH (09:00)
[2020-11-15] MEDS: ASPIRIN 81 MG TAB.CHEW PO SCH (09:00)
[2020-11-15] MEDS: METOPROLOL SUCCINATE 50 MG TABER PO SCH (09:00)
[2020-11-15] MEDS: PANTOPRAZOLE 40 MG TABEC PO SCH (09:00)
[2020-11-15] MEDS: BICALUTAMIDE 50 MG TAB PO SCH (09:00)
[2020-11-15] MEDS: amLODIPine 5 MG TAB PO SCH (09:00)
[2020-11-15] MEDS: DEXAMETHASONE 4 MG/ML VIAL IVP SCH (09:00)
[2020-11-15] MEDS: GABAPENTIN 100 MG CAP PO SCH (09:00)
[2020-11-15] MEDS: ASCORBIC ACID 500 MG TAB PO SCH (09:00)
[2020-11-15] MEDS: TAMSULOSIN 0.4 MG CAP PO SCH ×2 (09:00→21:00)
[2020-11-15 09:19] LABS: UREA NITROGEN, BLOOD 65 mg/dL (7-18)
[2020-11-15 09:24] LABS: BASOPHILS % (AUTO) 0.2 % (0.0-2.0); HEMATOCRIT 21.8 % (36-52); HEMOGLOBIN 7.1 g/dL (12.0-18.0); LYMPHOCYTES # (AUTO) 0.2 K/uL (2.0-11.5); LYMPHOCYTES % (AUTO) 1.1 % (20.5-51.1); MEAN CORPUSCULAR HEMOGLOBIN 28 pg (27-31); MEAN CORPUSCULAR HGB CONC 32 g/dL (33-37); MEAN CORPUSCULAR VOLUME 87.5 fL (80-94); MONOCYTES # (AUTO) 0.2 K/uL (0.8-1.0); MONOCYTES % (AUTO) 1.4 % (1.7-9.3); NEUTROPHILS # (AUTO) 14.4 K/uL (1.8-7.7); NEUTROPHILS % (AUTO) 97.3 % (42.2-75.2); PLATELET COUNT (AUTO) 230 K/uL (140-450); RED CELL DISTRIBUTION WIDTH 16.4 % (11.6-13.7); WHITE BLOOD COUNT (AUTO) 14.8 K/uL (4.8-10.8)
--- NOTE | 2020-11-15 10:17 | NUR ---
MEDICATION DUE NOT GIVEN PATIENT IS NPO FOR SWALLOW EVALUATION. LOVENOX SUBQ GIVEN.
[2020-11-15] MEDS: ENOXAPARIN 30 MG/0.3 ML SYR SUBQ SCH (10:18)
--- NOTE | 2020-11-15 11:30 | NUR ---
BLOOD SUGAR 336 MG/DL INSULIN COVERAGE GIVEN
[2020-11-15 12:00] VITALS: BP 141/61
--- NOTE | 2020-11-15 13:35 | NUR ---
CLEANED AND CHANGE DRESSING ON THE PATIENTS SACROCOCCYGEAL AREA, APPLIED SKIN INTEGRITY OITMENT AND HYDRAGUARD ON THE THIGH AND SCROTUM.
[2020-11-15] MEDS: SKINTEGRITY HYDROGEL TP SCH (13:57)
[2020-11-15] MEDS ORDERED: ALBUMIN HUMAN 5 % 250 ML IV SCH (15:00)
--- NOTE | 2020-11-15 15:41 | NUR ---
*ST: Bedside Swallow Re-Evaluation* Cleared with RN, Alejandra, for f/u re-assessment as Pt was not safe for PO diet when last seen by this BURIAL VAULT SETTER 11/12/2020. Since then, Pt has not been started on non-oral means of nutrition such as NG-tube or TPN/lipids. Pt now on 7L O2 oxymizer, an improvement from 15L when last seen by this BURIAL VAULT SETTER. Pt seen bedside, on +COVID-19 isolation precautions, on 7L O2 oxymizer, eyes closed, tired, but intermittently opened eyes with verbal stimulation. Pt had very dry oral mucosa with layers of dried material along palate and uvula. Suction set-up per BURIAL VAULT SETTER request. Extensive oral care provided with removal of brownish-red material. After oral care, Pt verbalized in soft but clear vocal quality, "Thank you." Multiple trials of ice chips x4, water by tsp x10 and apple sauce x4 given. Labial closure approximation ranged from close to open-mouth posture with tsp presentations despite verbal and tactile cuing. BURIAL VAULT SETTER essentially slipped bolus intraorally. Boli generally remained where placed or passively slipped posteriorly with spontaneous laryngeal excursion observed with thin but no overt coughing nor throat clearing. Passive swallow observed only in 5/10 tsp thin. With other trials, bolus remained where placed requiring removal by BURIAL VAULT SETTER. Pt did approximate mouth closure with verbal cuing but no cohesive bolus formed. No AP propulsion observed either. Further PO trials deferred. Results d/w pts RN. P: Rec NPO, oral care every 2-4 hrs Rec 5-10 thin water by tsp with RN after strict oral care to maintain swallow integrity Rec consider non-oral means of nutrition and medications if aligned with Pt/family wishes as Pt has been NPO since 11/12/2020 MD may re-order swallow eval if Pts mentation improves -Mariela Pitt MA, [facility]-BURIAL VAULT SETTER Addendum: 01/14/21 at [address] Amended: Links added.
[2020-11-15 16:00] VITALS: BP 114/50
--- NOTE | 2020-11-15 16:00 | NUR ---
NGT INSERTED, PATIENT TOLERATED WELL
[2020-11-15] MEDS: NACL 0.45% 1,000 ML IV SCH (16:30)
--- NOTE | 2020-11-15 16:34 | NUR ---
RD RECOMMENDATIONS: GLUCERNA 1.5 @ 45 X 24 HR. THIS WILL PROVIDE 1620 KCAL AND 89 GM OF PROTEIN MEETING 100% OF ESTIMATED KCAL AND PROTEIN NEEDS; FLUSH 135 ML Q6H
--- NOTE | 2020-11-15 17:00 | NUR ---
CHEST XRAY DONE FOR NGT PLACEMENT BUT UNABLE TO LOCATE THE NGT.
--- NOTE | 2020-11-15 17:45 | NUR ---
NGT UNABLE TO INSERT TO THE PATIENT.
--- NOTE | 2020-11-15 19:29 | NUR ---
ENDORSED TO NIGHT NURSE FOR CONTINUITY OF CARE.
--- NOTE | 2020-11-15 19:30 | NUR ---
RECEIVED PT SLEEPING ON FOWLERS POSITION, OPEN EYES TO TOUCH, CONFUSED AND NOT TALKING AT THIS TIME, NO SIGNS OF RESP DISTRESS WITH 91% ON 7L OXIMIZER, MAL MITTENS IN PLACE DUE TO TENDENCY TO PULLED OUT MEDICAL LINES, CONDOM CATH IN PLACE DRAINING CLEAR LIGHT NING URINE, IVF INFUSING WELL, ON DROPLET PRECAUTION, WILL REPOSITION Q2H AND OFFLOAD PRESSURE AREAS, FREQUENT ROUNDS WILL BE MADE.
[2020-11-15 20:00] VITALS: BP 126/72
[2020-11-15] MEDS: ATORVASTATIN 80 MG TAB PO SCH (21:00)
--- NOTE | 2020-11-15 21:59 | NUR ---
ATTEMPTED TO INSERT NGT TWICE BUT PT IS UNCOOPERATIVE AND CONFUSED, JUST GOES TO HIS MOUTH, TEXTED DR ERAZO.
--- NOTE | 2020-11-15 22:30 | NUR ---
DR ERAZO TEXTED BACK TO GIVE HIM A BREAK FOR NOW, WILL TRY TOMORROW , WILL ENDORSE.
[2020-11-16] VITALS: BP 118/76
--- NOTE | 2020-11-16 | NUR ---
PT SLEEPING, FLACC-0, VITAL SIGNS STABLE, NO RESP DISTRESS NOTED, IVF INFUSING WELL, CONTINUE TO MONITOR CLOSELY.
[2020-11-16] MEDS: HYDRAGUARD CREAM TP SCH ×2 (01:34→13:00)
[2020-11-16] MEDS: NACL 0.45% 1,000 ML IV SCH ×3 (01:52→09:19)
[2020-11-16 04:00] VITALS: BP 133/47
--- NOTE | 2020-11-16 04:00 | NUR ---
PT SLEEPING, OPEN EYES TO TOUCH, VITAL SIGNS STABLE, MONITORED CLOSELY.
--- NOTE | 2020-11-16 06:00 | NUR ---
BLOOD SUGAR CHECKED WITH 210 RESULT, COVERAGE GIVEN, MONITORED CLOSELY.
[2020-11-16] MEDS: INSULIN LISPRO SLIDING SCALE 100 UNITS/ML VIAL SUBQ PRN ×3 (06:08→17:21)
[2020-11-16] MEDS: BLOOD GLUCOSE MONITORING 1 DEV DEV FS SCH ×2 (06:56→12:18)
--- NOTE | 2020-11-16 07:25 | NUR ---
PT SLEEP, NO SIGNS OF DISTRESS, REPORT GIVEN TO KIMI ENGLISH FOR CONTINUITY OF CARE.
[2020-11-16 08:00] VITALS: BP 144/44
[2020-11-16] MEDS: ALBUTEROL HFA MDI 90 MCG/ACTUATION 8 GM INH SCH ×4 (08:00→20:00)
[2020-11-16] MEDS: BICALUTAMIDE 50 MG TAB PO SCH (09:00)
[2020-11-16] MEDS: ASPIRIN 81 MG TAB.CHEW PO SCH (09:00)
[2020-11-16] MEDS: amLODIPine 5 MG TAB PO SCH (09:00)
[2020-11-16] MEDS: METOPROLOL SUCCINATE 50 MG TABER PO SCH (09:00)
[2020-11-16] MEDS: VITAMIN D 400 IU TAB PO SCH (09:00)
[2020-11-16] MEDS: GABAPENTIN 100 MG CAP PO SCH (09:00)
[2020-11-16] MEDS: ASCORBIC ACID 500 MG TAB PO SCH (09:00)
[2020-11-16] MEDS: PANTOPRAZOLE 40 MG TABEC PO SCH (09:00)
[2020-11-16] MEDS: TAMSULOSIN 0.4 MG CAP PO SCH ×2 (09:00→21:00)
[2020-11-16] MEDS: DEXAMETHASONE 4 MG/ML VIAL IVP SCH (09:26)
[2020-11-16] MEDS: ENOXAPARIN 30 MG/0.3 ML SYR SUBQ SCH (09:31)
--- NOTE | 2020-11-16 10:05 | NUR ---
WOUND CARE RE-EVALUATION NOTE: PT. IS RESTLESS, UNABLE TO STAY TO SIDE LYING POSITION FOR MEASUREMENT. 02 SAT. 86%-89% WHEN TURN TO SIDE INCONTINENT ASSOCIATE DERMATITIS TO: INNER THIGHS AND SCROTAL AREA IMPROVING. NO IMPROVEMENT OF SACRAL WOUND CONDITION, COVID RELATED SKIN FAILURE DTI TO SACROCOCCYX,IRREGULAR SHAPE. PARTIAL THICKNESS SKIN LOSS WITH SUPERFICIAL DEPTH REMAIN,WOUND BED, MOIST, NO ODOR,SURROUNDING PURPLE DTI EXTENDED TO RIGHT AND LEFT INNER BUTTOCKS. WILL CONTINUE CURRENT INTERVENTIONS.
[2020-11-16 10:24] LABS: ALBUMIN 2.1 g/dL (3.4-5.0); ANION GAP 16.1 (8-16); ASPARTATE AMINOTRANSFERASE 55 U/L (15-37); CARBON DIOXIDE 23.8 mmol/L (21-32); CHLORIDE 123 mmol/L (98-107); CREATININE 1.5 mg/dL (0.6-1.3); GLUCOSE 161 mg/dL (74-106); POTASSIUM 3.9 mmol/L (3.5-5.1); TOTAL BILIRUBIN 0.4 mg/dL (0.0-1.0); UREA NITROGEN, BLOOD 57 mg/dL (7-18)
[2020-11-16 11:24] LABS: SODIUM SERUM 159 mmol/L (136-145)
[2020-11-16] MEDS ORDERED: DEXT 5% / NACL 0.2% 1,000 ML IV SCH (11:40)
[2020-11-16 12:00] VITALS: BP_SYST 121; BP_SYST 125; BP_DIAS 46; BP_DIAS 51
--- NOTE | 2020-11-16 12:20 | NUR ---
2 UNITS OF HUMALOG GIVEN FOR BS LEVEL 190. NEW IVF D5 0.2% NS HUNG PER MD ORDER. NO ACUTE DISTRESS NOTED. SAFETY MEASURES IN PLACE, WILL CONTINUE TO MONITOR.
[2020-11-16] MEDS ORDERED: TPN PER PHARMACY MC PRN (12:25)
[2020-11-16] MEDS: DEXT 5% / NACL 0.2% 1,000 ML IV SCH ×2 (12:58→19:30)
[2020-11-16] MEDS: SKINTEGRITY HYDROGEL TP SCH (13:00)
[2020-11-16 13:16] LABS: MAGNESIUM 1.5 mg/dL (1.8-2.4); PHOSPHORUS 3.1 mg/dL (2.5-4.9)
--- NOTE | 2020-11-16 13:37 | NUR ---
SPOKE WITH MARY FROM PICC LINE SERVICE, MARY-PICC LINE-RN WILL CALL FOR ETA. RN ASSIGNED MADE AWARE.
--- NOTE | 2020-11-16 13:40 | NUR ---
REACHED PATIENT'S SON TESHA AND GOT PICC LINE CONSENT, VERIFIED WITH SECOND RN. EXPLAINED REGARDING THE PICC LINE AND TPN. PATIENT'S SON VERBALIZED UNDERSTANDING.
[2020-11-16 16:00] VITALS: BP 121/46
--- NOTE | 2020-11-16 16:38 | NUR ---
PICC LINE WAS INSERTED BY THE PICC LINE NURSE KAY. CXR ORDERED AND RADIOLOGY STAFF WAS INFORMED. WILL FOLLOW UP.
[2020-11-16] MEDS: BLOOD GLUCOSE MONITORING 1 DEV DEV MC SCH (17:20)
--- NOTE | 2020-11-16 19:30 | NUR ---
RECEIVED REPORT FROM RN DAYSHIFT NURSE AT BEDSIDE FOR CONTINUITY OF CARE, PT IN STABLE CONDITION.
[2020-11-16 20:00] VITALS: BP 122/53
[2020-11-16] MEDS: AMINO ACIDS 8.5% IV SCH ×4 (21:00)
[2020-11-16] MEDS: ATORVASTATIN 80 MG TAB PO SCH (21:00)
[2020-11-16] MEDS: MULTIVITAMIN IV SCH ×4 (21:00)
[2020-11-16] MEDS: [UNRECOGNIZED DRUG - OTHER] IV SCH ×4 (21:00)
[2020-11-16] MEDS: DEXTROSE IV SCH ×4 (21:00)
--- NOTE | 2020-11-16 21:00 | NUR ---
PT IN BED AOX1 ON 7 LITERS VIA N/C, PT STATING AT 82%, OXYMIZER BUMPED UP TO 10 LITERS VIA OXYMIZER. PT HAS RIGHT UPPER PICC LINE DOUBLE LUMEN IN PLACE, TPN HUNG AND RUNNING ORDERED. PO MEDS COULD NOT BE ADMINISTERED PT WAS TURNED AND REPOSITED IN BED, DRESSING TO SACRAL ULCER DRY AND INTACT. ALL ORDERED PRECAUTIONS IN PLACE.
--- NOTE | 2020-11-16 23:30 | NUR ---
PT FOUND TO HAVE MITTS OFF, PT CALM , NOT TRYING TO FIGHT STAFF OR PULL ON TUBING. PT WAS TURNED AND REPOSITIONED IN BED. ALL ORDERED PRECAUTIONS IN PLACE.
[2020-11-17] VITALS: BP 135/49
--- NOTE | 2020-11-17 | NUR ---
PT FINGERSTICK IS 324, PT GIVEN COVERAGE PER S/S.
[2020-11-17] MEDS: INSULIN LISPRO SLIDING SCALE 100 UNITS/ML VIAL SUBQ PRN ×4 (00:39→16:26)
[2020-11-17] MEDS: HYDRAGUARD CREAM TP SCH ×2 (01:00→13:00)
--- NOTE | 2020-11-17 01:00 | NUR ---
PT PULLED OUT PICC LINE INTACT,MD ERAZO WAS TEXTED, HOUSE AND CHARGE MADE AWARE. WILL TRY FOR PERIPHERAL IV FOR FLUIDS. TPN AND FLUIDS NOT ABLE TO BE ADMINISTERED AT THIS TIME.
[2020-11-17] MEDS: DEXT 5% / NACL 0.2% 1,000 ML IV SCH ×4 (02:10→22:10)
[2020-11-17 04:00] VITALS: BP 129/39
[2020-11-17] MEDS: ALBUTEROL HFA MDI 90 MCG/ACTUATION 8 GM INH SCH ×2 (04:00)
--- NOTE | 2020-11-17 04:00 | NUR ---
PT WAS TURNED, CHANGED AND REPOSITIONED IN BED SACRAL WOUND CLEANED AND REDRESSED. RESTRAINTS IN PLACE, PT CONTINUES ON 10 LITERS OXYMIZER. RESTRAINTS IN PLACE.
--- NOTE | 2020-11-17 05:13 | NUR ---
CALLED PICC RN, LM
[2020-11-17] MEDS: BLOOD GLUCOSE MONITORING 1 DEV DEV MC SCH ×4 (06:00→16:20)
--- NOTE | 2020-11-17 07:58 | NUR ---
FINGERSTICK IS 154 PT GIVEN 2 UNITS HUMALOG COVERAGE.
[2020-11-17 08:00] VITALS: BP 150/39
[2020-11-17] MEDS ORDERED: MAG SULF 2000 MG/WATER PREMIX 50 ML IV ONE (08:20)
[2020-11-17 08:29] LABS: BASOPHILS % (AUTO) 0.1 % (0.0-2.0); LYMPHOCYTES # (AUTO) 0.2 K/uL (2.0-11.5); LYMPHOCYTES % (AUTO) 1.2 % (20.5-51.1); MEAN CORPUSCULAR HEMOGLOBIN 29 pg (27-31); MEAN CORPUSCULAR HGB CONC 33 g/dL (33-37); MEAN CORPUSCULAR VOLUME 86.8 fL (80-94); MONOCYTES # (AUTO) 0.4 K/uL (0.8-1.0); MONOCYTES % (AUTO) 2.9 % (1.7-9.3); NEUTROPHILS # (AUTO) 12.5 K/uL (1.8-7.7); NEUTROPHILS % (AUTO) 95.8 % (42.2-75.2); PLATELET COUNT (AUTO) 198 K/uL (140-450); RED BLOOD CELL COUNT(AUTO) 1.97 MIL/uL (4.20-6.10); RED CELL DISTRIBUTION WIDTH 16.3 % (11.6-13.7)
[2020-11-17 08:37] LABS: HEMATOCRIT 17.1 % (36-52); HEMOGLOBIN 5.6 g/dL (12.0-18.0)
[2020-11-17] MEDS: ENOXAPARIN 30 MG/0.3 ML SYR SUBQ SCH (08:49)
[2020-11-17] MEDS: METOPROLOL SUCCINATE 50 MG TABER PO SCH (08:50)
[2020-11-17] MEDS: DEXAMETHASONE 4 MG/ML VIAL IVP SCH (08:50)
[2020-11-17] MEDS: PANTOPRAZOLE 40 MG TABEC PO SCH (08:50)
[2020-11-17] MEDS: TAMSULOSIN 0.4 MG CAP PO SCH ×2 (08:50→21:41)
[2020-11-17] MEDS: amLODIPine 5 MG TAB PO SCH (08:50)
[2020-11-17] MEDS: allopurinoL 100 MG TAB PO SCH (08:50)
[2020-11-17] MEDS: GABAPENTIN 100 MG CAP PO SCH (08:50)
[2020-11-17] MEDS: VITAMIN D 400 IU TAB PO SCH (08:50)
[2020-11-17] MEDS: BICALUTAMIDE 50 MG TAB PO SCH (08:50)
[2020-11-17] MEDS: ASCORBIC ACID 500 MG TAB PO SCH (08:50)
[2020-11-17] MEDS: ASPIRIN 81 MG TAB.CHEW PO SCH (08:50)
--- NOTE | 2020-11-17 08:59 | NUR ---
MAGNESIUM RIDER GIVEN VIA IVF. LOVENOX GIVEN, DECADRON GIVEN VIA IVP. PATIENT TOLERATED WELL. PATIENT IS ON 10L VIA OXIMIZER. PICC LINE WAS ACCIDENT PULLED OUT BY THE PATIENT LAST NIGHT, PER COLORIST PHOTOGRAPHY RN. DR. ERAZO MADE AWARE. MIDLINE ORDERED. PICC LINE NURSE CONTACTED. WILL CALL BACK AND GIVE ETA. WILL FOLLOW UP.
[2020-11-17 09:16] LABS: ALBUMIN 2.1 g/dL (3.4-5.0); ANION GAP 16.7 (8-16); ASPARTATE AMINOTRANSFERASE 52 U/L (15-37); CARBON DIOXIDE 20.4 mmol/L (21-32); CHLORIDE 112 mmol/L (98-107); CREATININE 1.5 mg/dL (0.6-1.3); GLUCOSE 270 mg/dL (74-106); POTASSIUM 3.1 mmol/L (3.5-5.1); SODIUM SERUM 146 mmol/L (136-145); TOTAL BILIRUBIN 0.5 mg/dL (0.0-1.0); UREA NITROGEN, BLOOD 59 mg/dL (7-18)
[2020-11-17 09:22] LABS: MAGNESIUM 1.6 mg/dL (1.8-2.4); PHOSPHORUS 3.2 mg/dL (2.5-4.9)
[2020-11-17 12:00] VITALS: BP 135/47
--- NOTE | 2020-11-17 12:31 | NUR ---
INFORMED BY ST TONY. PATIENT DID NOT PASS THE SWALLOW EVAL. STILL KEEP NPO. WILL INFORM DR. ERAZO.
[2020-11-17] MEDS: SKINTEGRITY HYDROGEL TP SCH (13:00)
--- NOTE | 2020-11-17 13:10 | NUR ---
* ST TX NOTE * Dysphagia follow up Tx completed at pt's bedside at this time. Pt asleep upon entering room. Upon awakening, pt alert but lethargic, reporting no c/o pain at this time. Pt demo'ing moderate oral phase dysphagia as characterized by anterior pocketing of puree apple sauce, w/no attempts at A-P bolus transit despite liquid wash prompted by clinician. Pt requiring total assistance to clear oral cavity of puree bolus. Pt also presenting with suspected mild to moderate pharyngeal phase dysphagia as characterized by overt coughing immediately after 2 tsp trials of thin liquid apple juice. Pt however tolerating 3/3 tsp trials of nectar-thickened liquid w/o overt s/s of aspiration. Pt also refusing further therapeutic feeding trials at this time, despite maximal encouragement and education provided by clinician for additional trials, demo'ing poor motivation and tolerance for PO intake, w/pt also presenting with increased work of breathing towards conclusion of session. Pt and RN (Servando) education completed re: results of Dysphagia Tx, Dietitian Consult/Eval for alternative means of nutrition, oral hygiene recommendations, and prognosis for improvement, w/pt and RN verbalizing understanding and agreement. RN (Siabbei) also reporting re-attempting insertion of NGT this PM. Recommend: - NPO EXCEPT MEDICATIONS CRUSHED IN NECTAR-THICKENED LIQUIDS VIA SPOON OR VIA NGT - DIETITIAN CONSULT/EVAL FOR ALTERNATIVE MEANS OF NUTRITION - EXCELLENT ORAL HYGIENE 2X IN AM AND PM, RESPECTIVELY. ST to follow up 2x/week for 1 week for ongoing assessment of pt's tolerance for PO intake and least restrictive PO diet consistency pending improvements in pt's medical condition, mentation, etc. Addendum: 11/17/20 at [address] Amended: Links added.
--- NOTE | 2020-11-17 13:48 | NUR ---
(11/17/20) RD FOLLOW UP COMPLETED PLEASE REFER TO NUTRITION PROGRESS NOTE UNDER CARE ACTIVITY FOR ESTIMATED NUTRITION NEEDS. RD RECOMMENDATIONS: CONTINUE CURRENT TPN REGIMEN: TPN D10%, AA4.5% AT 100 ML/HR WITH 20%LIPIDS AT 150 ML/HR VIA PERIPHERAL LINE. THIS PROVIDES 1488 KCAL, 102GM PROTEIN, 2400 ML TOTAL VOLUME, 2.55GIR MG/CHO/KG/MIN. MEETS 92% OF PATIENTS ESTIMATED KCAL NEEDS AND >100% PROTEIN NEEDS; ADEQUATE. RD TO FOLLOW-UP 2-3 DAYS, HIGH RISK RADHA DAVID, MS, RDN
[2020-11-17 16:00] VITALS: BP 145/50
--- NOTE | 2020-11-17 16:44 | NUR ---
TRIED TWICE TO INSERT NG TUBE, WITH THE HELP WITH TESHA/KIMI AND CLINICAL INSTRUCTOR, FAILED. PATIENT DOES NOT COOPERATED. EVEN THE INSTRUCTOR SPEAKS GERMAN WITH THE PATIENT. DR. ERAZO MADE AWARE.
--- NOTE | 2020-11-17 17:11 | NUR ---
REACHED PICC LINE NURSE AGAIN, STATED THAT GOT BUSY TODAY, WILL COME LATER TODAY. INFORMED THAT PATIENT NEEDS MIDLINE FOR TPN. STATED THAT WILL CALL BACK AND GIVE THE ETA. WILL FOLLOW UP.
--- NOTE | 2020-11-17 17:59 | NUR ---
PATIENT SOMEHOW PULLED OUT THE IV ON THE LEFT WRIST, THE RESTRAINT MITTEN WAS OUT WELL. INSERT NEW IV ON THE RIGHT AC, WITH GOOD BLOOD RETURN. NO ACUTE DISTRESS NOTED, WILL CONTINUE TO MONITOR.
--- NOTE | 2020-11-17 18:25 | NUR ---
1ST UNIT OF RBC TRANSFUSION STARTED, VITAL SIGNS CHECKED, WILL CLOSELY TO MONITOR.
--- NOTE | 2020-11-17 18:40 | NUR ---
VITAL SIGNS CHECKED. BP 118/62, HR 82, RR18. TEMP 97.4, NO REACTION NOTED. CONTINUE WITH 80ML/HR. NOT INCREASED THE RATE CONSIDERING PATIENT'S AGE. WILL CONTINUE TO MONITOR.
--- NOTE | 2020-11-17 19:21 | NUR ---
ENDORSED PATIENT TO CNC LASER OPERATOR RN FOR CONTINUITY OF CARE. PATIENT IS STILL INFUSING THE FIRST UNIT OF RED BLOOD CELL. VITAL SIGNS STABLE. ON 15L OXIMIZER.
[2020-11-17] MEDS: MULTIVITAMIN IV SCH ×4 (20:00)
[2020-11-17] MEDS: AMINO ACIDS 8.5% IV SCH ×4 (20:00)
[2020-11-17] MEDS: [UNRECOGNIZED DRUG - OTHER] IV SCH ×4 (20:00)
[2020-11-17] MEDS: DEXTROSE IV SCH ×4 (20:00)
[2020-11-17 21:00] VITALS: BP_SYST 112; BP_SYST 122; BP_DIAS 56; BP_DIAS 72
[2020-11-17] MEDS: ATORVASTATIN 80 MG TAB PO SCH (21:42)
[2020-11-17] MEDS: LORazepam 2 MG/ML VIAL IM/IVP PRN (21:47)
[2020-11-18] VITALS: BP 138/53
[2020-11-18] MEDS: HYDRAGUARD CREAM TP SCH ×2 (01:20→12:13)
[2020-11-18] MEDS: INSULIN LISPRO SLIDING SCALE 100 UNITS/ML VIAL SUBQ PRN ×5 (01:29→23:44)
[2020-11-18 04:00] VITALS: BP 146/43
[2020-11-18] MEDS: DEXT 5% / NACL 0.2% 1,000 ML IV SCH ×3 (04:50→18:10)
[2020-11-18] MEDS: BLOOD GLUCOSE MONITORING 1 DEV DEV MC SCH ×4 (06:00→17:40)
--- NOTE | 2020-11-18 07:20 | NUR ---
HANDOFF REPORT RECEIVED FROM CARDROOM MANAGER RN. POC REVIEWED AND DISCUSSED. PT IS RESTLESS. ON BILATERAL SOFT WRIST RESTRAINTS. NO CYANOSIS TO DISTAL UPPER EXTREMITIES. NO SOB. ON 8L O2 VIA OXYMIZER. AFEBRILE. ONGOING BLOOD TRANSFUSION. NO SIGNS REACTION NOTED. NO RASHES OR CARDIAC DISTRESS NOTED. ON TPN VIA JOSHUA MIDLINE. WILL CONTINUE TO MONITOR.
[2020-11-18 08:00] VITALS: BP 133/71
[2020-11-18 08:07] LABS: ALBUMIN 2.2 g/dL (3.4-5.0); ANION GAP 19.8 (8-16); ASPARTATE AMINOTRANSFERASE 59 U/L (15-37); CARBON DIOXIDE 20.4 mmol/L (21-32); CHLORIDE 115 mmol/L (98-107); CREATININE 1.5 mg/dL (0.6-1.3); GLUCOSE 177 mg/dL (74-106); MAGNESIUM 1.9 mg/dL (1.8-2.4); PHOSPHORUS 3.2 mg/dL (2.5-4.9); POTASSIUM 3.2 mmol/L (3.5-5.1); SODIUM SERUM 152 mmol/L (136-145); TOTAL BILIRUBIN 0.6 mg/dL (0.0-1.0); UREA NITROGEN, BLOOD 59 mg/dL (7-18)
[2020-11-18] MEDS: ASCORBIC ACID 500 MG TAB PO SCH (09:00)
[2020-11-18] MEDS: VITAMIN D 400 IU TAB PO SCH (09:00)
[2020-11-18] MEDS: TAMSULOSIN 0.4 MG CAP PO SCH ×2 (09:00→21:00)
[2020-11-18] MEDS: ASPIRIN 81 MG TAB.CHEW PO SCH (09:00)
[2020-11-18] MEDS: PANTOPRAZOLE 40 MG TABEC PO SCH (09:00)
[2020-11-18] MEDS: BICALUTAMIDE 50 MG TAB PO SCH (09:00)
[2020-11-18] MEDS: amLODIPine 5 MG TAB PO SCH (09:00)
[2020-11-18] MEDS: METOPROLOL SUCCINATE 50 MG TABER PO SCH (09:00)
[2020-11-18] MEDS: DEXAMETHASONE 4 MG/ML VIAL IVP SCH (09:20)
[2020-11-18 12:00] VITALS: BP 149/55
--- NOTE | 2020-11-18 12:00 | NUR ---
BLOOD TRANSFUSION DONE. NO REACTION NOTED. NO SOB. AFEBRILE. BP/HR WNL. WILL CONTINUE TO MONITOR.
[2020-11-18] MEDS: SKINTEGRITY HYDROGEL TP SCH (12:13)
[2020-11-18 14:50] LABS: BASOPHILS # (AUTO) 0.1 K/uL (0.00-0.22); BASOPHILS % (AUTO) 0.3 % (0.0-2.0); HEMOGLOBIN 8.2 g/dL (12.0-18.0); LYMPHOCYTES # (AUTO) 0.2 K/uL (2.0-11.5); LYMPHOCYTES % (AUTO) 1.4 % (20.5-51.1); MEAN CORPUSCULAR HEMOGLOBIN 29 pg (27-31); MEAN CORPUSCULAR HGB CONC 33 g/dL (33-37); MEAN CORPUSCULAR VOLUME 87.5 fL (80-94); MONOCYTES # (AUTO) 0.5 K/uL (0.8-1.0); MONOCYTES % (AUTO) 2.9 % (1.7-9.3); NEUTROPHILS # (AUTO) 15.5 K/uL (1.8-7.7); NEUTROPHILS % (AUTO) 95.4 % (42.2-75.2); PLATELET COUNT (AUTO) 217 K/uL (140-450); RED BLOOD CELL COUNT(AUTO) 2.86 MIL/uL (4.20-6.10); WHITE BLOOD COUNT (AUTO) 16.2 K/uL (4.8-10.8)
[2020-11-18 16:00] VITALS: BP 122/59
--- NOTE | 2020-11-18 16:00 | NUR ---
PT IS RESTLESS. KEPT BILATERAL SOFT WRIST RESTRAINTS IN PLACE. RELEASED MADE TO CHECK CIRCULATION. NO CYANOSIS NOTED. PALPABLE DISTAL PULSES.
--- NOTE | 2020-11-18 19:30 | NUR ---
RECEIVED REPORT AT BEDSIDE FOR CONTINUITY OF CARE, PT IN STABLE CONDITION.
--- NOTE | 2020-11-18 19:30 | NUR ---
ENDORSED PATIENT TO DOG CATCHER RN. POC REVIEWED. NO CHANGES OF CONDITION.
[2020-11-18 20:00] VITALS: BP 177/70
--- NOTE | 2020-11-18 20:30 | NUR ---
PT IN BED,HOB UP 45%, RESTRAINTS IN PLACE LEFT UPPER PICC IN PLACE, TPN HUNG AND RUNNING AT 100MLS/HR ORDERED. HE HAS D5 20% RUNNING AT 150 WITH 10LITERS VIA OXYMIZER. PT B/P WAS ELEVATED WILL ADMINISTER PRN. ALL ORDERED PRECAUTIONS IN PLACE.
[2020-11-18] MEDS: ATORVASTATIN 80 MG TAB PO SCH (21:00)
[2020-11-18] MEDS: [UNRECOGNIZED DRUG - OTHER] IV SCH ×4 (21:04)
[2020-11-18] MEDS: AMINO ACIDS 8.5% IV SCH ×4 (21:04)
[2020-11-18] MEDS: DEXTROSE IV SCH ×4 (21:04)
[2020-11-18] MEDS: MULTIVITAMIN IV SCH ×4 (21:04)
[2020-11-18] MEDS: MORPHINE SULFATE 2 MG/ML SYR IVP PRN (21:05)
--- NOTE | 2020-11-18 21:50 | NUR ---
RADIOLOGY CALLED REGARDING ORDERED HEAD CT. WILL CALL BACK AFTER MED PASS TO ASSIST WITH TRANSPORTATION. PT ALSO GIVEN IVP/PRN MORPHINE FOR PT MOANING AND HIGH BLOOD PRESSURE. WILL CONTINUE TO MONITOR FOR RELIEF.
--- NOTE | 2020-11-18 22:00 | NUR ---
PT BAG OF ORDERED FLUID, D520% REPLACED AND IS RUNNING ORDERED.
[2020-11-18] MEDS ORDERED: hydrALAZINE 20 MG/ML VIAL IVP SCH (23:00)
--- NOTE | 2020-11-18 23:35 | NUR ---
PT V/S RETQAKEN T 97.0 P 85 R 18 B/P 197/77 02 98%. MD MOHAN CONTACTED, SHE ORDERED X1 10MG HYDRALAZINE IVP WHICH WAS GIVEN , WILL CONTINUE TO MONITOR B/P. PT TURNED, AND REPOSITIONED IN BED. ALL ORDERED PRECAUTIONS IN PLACE.
[2020-11-19] VITALS: BP 197/77
--- NOTE | 2020-11-19 | NUR ---
PT TONE IS 319, HE WAS GIVEN 8 UNITS PER JOSE S/S. Addendum: 11/20/20 at 0223 by Dang Gonsalez RN WRONG DATE 11/20/20
[2020-11-19] MEDS: BLOOD GLUCOSE MONITORING 1 DEV DEV MC SCH ×4 (00:17→17:13)
--- NOTE | 2020-11-19 00:30 | NUR ---
PT FINGERSTICK IS 347, PT GIVEN 10 UNITS OF HUMALOG COVERAGE
[2020-11-19] MEDS: DEXT 5% / NACL 0.2% 1,000 ML IV SCH ×3 (00:50→14:40)
[2020-11-19] MEDS: HYDRAGUARD CREAM TP SCH ×2 (01:00→13:00)
[2020-11-19 04:00] VITALS: BP 190/83
--- NOTE | 2020-11-19 04:30 | NUR ---
HEAD CT WITHOUT CONTRAST DONE. PT RETURNED TO FLOOR.
[2020-11-19] MEDS ORDERED: hydrALAZINE 20 MG/ML VIAL IVP ONE (04:55)
--- NOTE | 2020-11-19 04:57 | NUR ---
PT B/P TAKEN IS 190/83, CONTACTED MD MOHAN REGARDING ELEVATED SBP NEW ORDER NOTED.
[2020-11-19] MEDS: ALENDRONATE SODIUM 70 MG TAB PO SCH (06:00)
--- NOTE | 2020-11-19 06:00 | NUR ---
PT GIVEN IVP HYDRALAZINE FOR HTN, WILL CONTINUE TO MONITOR BLOOD PRESSURE. PT FINGERSTICK IS 335, PT GIVEN HUMALOG COVERAGE PER S/S. PT CONTINUES ON OXYMIZER NO S/S OF PAIN OR DISTRESS NOTED. ALL ORDERED PRECAUTIONS IN PLACE.
[2020-11-19] MEDS ORDERED: hydrALAZINE 10 MG TAB ONE (06:18)
[2020-11-19] MEDS ORDERED: hydrALAZINE 20 MG/ML VIAL ONE (06:18)
[2020-11-19] MEDS: INSULIN LISPRO SLIDING SCALE 100 UNITS/ML VIAL SUBQ PRN ×3 (06:55→17:14)
[2020-11-19 08:00] VITALS: BP 148/58
[2020-11-19] MEDS: ALBUTEROL HFA MDI 90 MCG/ACTUATION 8 GM INH SCH ×4 (08:00→20:00)
[2020-11-19 08:57] LABS: ALBUMIN 1.9 g/dL (3.4-5.0); ANION GAP 16.7 (8-16); ASPARTATE AMINOTRANSFERASE 62 U/L (15-37); CARBON DIOXIDE 20.8 mmol/L (21-32); CHLORIDE 110 mmol/L (98-107); CREATININE 1.3 mg/dL (0.6-1.3); GLUCOSE 345 mg/dL (74-106); MAGNESIUM 1.7 mg/dL (1.8-2.4); PHOSPHORUS 2.4 mg/dL (2.5-4.9); POTASSIUM 3.5 mmol/L (3.5-5.1); SODIUM SERUM 144 mmol/L (136-145); TOTAL BILIRUBIN 0.6 mg/dL (0.0-1.0); UREA NITROGEN, BLOOD 50 mg/dL (7-18)
[2020-11-19] MEDS: PANTOPRAZOLE 40 MG TABEC PO SCH (09:00)
[2020-11-19] MEDS: amLODIPine 5 MG TAB PO SCH (09:00)
[2020-11-19] MEDS: METOPROLOL SUCCINATE 50 MG TABER PO SCH (09:00)
[2020-11-19] MEDS: BICALUTAMIDE 50 MG TAB PO SCH (09:00)
[2020-11-19] MEDS: VITAMIN D 400 IU TAB PO SCH (09:00)
[2020-11-19] MEDS: TAMSULOSIN 0.4 MG CAP PO SCH ×2 (09:00→21:00)
[2020-11-19] MEDS: ASCORBIC ACID 500 MG TAB PO SCH (09:00)
[2020-11-19] MEDS: allopurinoL 100 MG TAB PO SCH (09:00)
[2020-11-19] MEDS: DEXAMETHASONE 4 MG/ML VIAL IVP SCH (09:44)
--- NOTE | 2020-11-19 09:44 | NUR ---
SCHEDULED MORNING MEDICATION DECADRON GIVEN VIA IVP, ALL ORAL MEDICATION HOLD DUE TO NPO STATUS. PATIENT IS ON 10L NC WITH HUMIDIFIER. IVF INFUSING ORDERED. TPN INFUSING WELL. NO ACUTE DISTRESS NOTED. WILL CONTINUE TO MONITOR.
--- NOTE | 2020-11-19 11:16 | NUR ---
MDI NOT GIVEN, PT IS UNABLE TO USE MDI.
--- NOTE | 2020-11-19 11:38 | NUR ---
PATIENT HAD 1 WET DIAPER, ELECT[employer]ICS PARTS SALES REPRESENTATIVE CHANGED THE PATIENT. WOUND DRESSING CHANGE ON THE SACRAL. COVERED WITH OPTIFORM, PATIENT TOLERATED THE PROCEDURE WELL. NO ACUTE DISTRESS NOTED, WILL CONTINUE TO MONITOR.
--- NOTE | 2020-11-19 13:35 | NUR ---
WOUND CARE RE-EVALUATION FOR CHANGE OF SACRCOCCYX CONDITION: COVID RELATED SKIN FAILURE DTI FURTHER DAMAGE TO UN-STAGEABLE TO SACROCOCCYX 2X3.5CM 100% LIGHT BROWN DRY LEATHER LIKED SLOUGH TISSUE, IRREGULAR SHAPE, NO ODOR,SURROUNDING REDNESS EXTENDED TO RIGHT AND LEFT INNER BUTTOCKS.INCONTINENT ASSOCIATE DERMATITIS TO: INNER THIGHS AND SCROTAL AREA RESOLVED, WILL CONTINUE TO APPLY BARRIER CREAM. POC DISCUSSED WITH PRIMARY RN. SACRALCOCCYX AREA OFFLOADING AND RECOMMEND TO APPLY SOAKED 2X2 BETADINE SOLUTION TO SACRALCOCCYX AND COVER WITH COMPOSITE DRESSING QD AND PRN IF SOILING
--- NOTE | 2020-11-19 15:05 | NUR ---
PATIENT RESTING IN RIGHT LATERAL POSITION. IVF AND TPN INFUSING INDICATED. NO ACUTE DISTRESS NOTED. WILL CONTINUE TO MONITOR.
--- NOTE | 2020-11-19 16:12 | NUR ---
*ST: Follow-up Swallow Tx / Ongoing Swallow Analysis* Cleared with RNServando, for f/u PO trials. Per RN, multiple attempts to place NGT over the weekend were unsuccessful, with Pt essentially started on TPN/lipids Thursday night (11/16/2020). Noted Pt had f/u session 11/17/2020 but not appropriate for PO's at this time 2/2 poor oral manipulation and wincing during swallow. Pt seen bedside, on +COVID-19 isolation precautions, on 10L O2 oxymizer, opened eyes and looked at speaker x1. Pt occasionally verbalized, "Thank you," in very soft vocal quality. Pt often had open-mouth posture at rest. Noted dried material along palate and tongue. Oral care provided. Limited trials of thin water by tsp given. No labial approximation with tsp presentations despite verbal and tactile cuing by CHIEF SOLUTION ARCHITECT. Thin bolus generally remained where placed or slipped to sublingual sulcus. Suspect passive movement of thin bolus posteriorly leading to open-mouth posture swallow. Pt would wince during swallow. Increased frequency of coughing with subsequent trials of thin observed. Further PO trials deferred 2/2 responses above. Results d/w pt and pt's RN. P: Rec continue NPO, oral care every 2-4 hrs Rec continue non-oral means of nutrition and medications MD may re-order swallow eval when Pt's mentation and participation improves -Mariela Pitt MA, CCC-CHIEF SOLUTION ARCHITECT Addendum: 11/19/20 at [address] Amended: Links added.
--- NOTE | 2020-11-19 17:20 | NUR ---
6 UNITS OF HUMALOG GIVEN FOR BS LEVEL 296. ORAL CARE PERFORMED. WOUND CARE PERFORMED NEW ORDER. WOUND PHOTO TAKEN. TURNED PATIENT TO LEFT LATERAL. PATIENT CONTINUE WITH 10L OXIMIZER. WILL CONTINUE TO MONITOR.
--- NOTE | 2020-11-19 19:22 | NUR ---
ENDORSED PATIENT TO CLINICAL EDUCATION MANAGER RN FOR CONTINUITY OF CARE. PATIENT WITH 10L OXIMIZER, IN STABLE CONDITION.
--- NOTE | 2020-11-19 19:30 | NUR ---
RECEIVED BEDSIDE REPORT FORM OZI RN DAYSHIFT NURSE AT BEDSIDE FOR CONTINUITY OF CARE, PT IN STABLE CONDITION.
[2020-11-19 20:00] VITALS: BP 147/37
--- NOTE | 2020-11-19 20:00 | NUR ---
PT IN BED AOX1, HE CONTINUES ON THE RESTRAINTS, DUE TO PULLING OUT IV TUBES AND LINES. PT HOB ELEVATED HE HAS 02 RUNNING AT 10 LITERS VIA OXYMIZER. PT HAS LEFT UPPER PICC LINE RUNNING TPN AT 100MLS/HR WELL RAC 20G RUNNING D520% AT 75MLS/HR. PT HAS DRESSING TO THE SACRAL INTACT AND DRY. V/S FOLLOWS: T 98.2 P 96 R 20 B//P 147/40 02 92% ON 10 LITERS OXYMIZER. ALL ORDERED PRECAUTIONS IN PLACE.
--- NOTE | 2020-11-19 20:30 | NUR ---
TPN HUNG AND RUNNING ORDERED. PT TURNED, AND REPOSITIONED ALL ORDERED PRECAUTIONS IN PLACE.
[2020-11-19] MEDS: ATORVASTATIN 80 MG TAB PO SCH (21:00)
--- NOTE | 2020-11-19 21:00 | NUR ---
PT FINGERSTICK IS 319, PT GIVEN 8 UNITS OF HUMALOG COVERAGE. ALSO LIPITOR AND FLOMAX HELD DUE TO PT FAILING SWALLOW EXAM AND NO NG OR GT ACCESS. ALL ORDERED PRECAUTIONS IN PLACE.
[2020-11-19] MEDS: MULTIVITAMIN IV SCH ×4 (21:40)
[2020-11-19] MEDS: DEXTROSE IV SCH ×4 (21:40)
[2020-11-19] MEDS: [UNRECOGNIZED DRUG - OTHER] IV SCH ×4 (21:40)
[2020-11-19] MEDS: AMINO ACIDS 8.5% IV SCH ×4 (21:40)
--- NOTE | 2020-11-19 23:00 | NUR ---
PT IN BED 02 AND FLUIDS RUNNING ORDERED. PT IN BED WITH EYEAS CLOSED ASLEEP, NO S/S OF PAIN OR DISTRESS NOTED. RESTRAINTS IN PLACE, PT WAS REPOSITIONED IN BED. ALL ORDERED PRECAUTIONS IN PLACE.
--- NOTE | 2020-11-20 | NUR ---
FINGERSTICK IS 319, PT GIVEN 8 UNITS PER HUMALOG S/S.
--- NOTE | 2020-11-20 00:30 | NUR ---
PT IN BED , HE WAS TURNED, CHANGED AND REPOSITIONED IN BED V/S FOLLOWS: T 98.2 P 96 R 22 B/P 158/70 02 IS 94% WITH [address]
[2020-11-20] MEDS: INSULIN LISPRO SLIDING SCALE 100 UNITS/ML VIAL SUBQ PRN ×4 (00:40→18:09)
[2020-11-20] MEDS: BLOOD GLUCOSE MONITORING 1 DEV DEV MC SCH ×4 (00:50→18:08)
[2020-11-20] MEDS: HYDRAGUARD CREAM TP SCH ×2 (01:00→13:04)
[2020-11-20] MEDS: DEXT 5% / NACL 0.2% 1,000 ML IV SCH ×2 (03:59→17:20)
[2020-11-20] MEDS: ALBUTEROL HFA MDI 90 MCG/ACTUATION 8 GM INH SCH ×6 (04:00→20:00)
[2020-11-20] MEDS: LORazepam 2 MG/ML VIAL IM/IVP PRN ×2 (05:04→11:46)
--- NOTE | 2020-11-20 06:00 | NUR ---
PT AGITATED AND WAS GIVEN IVP ATIVAN . WILL MONITOR FOR EFFECT.
[2020-11-20] MEDS: MORPHINE SULFATE 2 MG/ML SYR IVP PRN (06:38)
--- NOTE | 2020-11-20 06:57 | NUR ---
PT CONTINUES TO BE RESTLESS, HE WAS GIVEN IVP MORPHINE. WILL MONITOR FOR EFFECT.
--- NOTE | 2020-11-20 07:20 | NUR ---
RECEIVED REPORT FROM CLARK DRIVER RN FOR CONTINUITY OF CARE. PATIENT RESTING IN BED WITH 10L O2 VIA OXIMIZER. FLACC 0. IV SITE RIGHT AC 20G INFUSING IVF ORDERED. LEFT UPPER ARM MIDLINE INFUSING TPN. SKIN WARM AND DRY. SACRAL WOUND DRESSING INTACT. INCONTINENT BLADDER AND BOWEL. NO ACUTE DISTRESS NOTED. WILL CONTINUE TO MONITOR.
[2020-11-20 08:00] VITALS: BP 123/54
[2020-11-20 08:29] LABS: BASOPHILS % (AUTO) 0.2 % (0.0-2.0); HEMATOCRIT 30.9 % (36-52); HEMOGLOBIN 10.2 g/dL (12.0-18.0); LYMPHOCYTES # (AUTO) 0.1 K/uL (2.0-11.5); LYMPHOCYTES % (AUTO) 0.8 % (20.5-51.1); MEAN CORPUSCULAR HEMOGLOBIN 29 pg (27-31); MEAN CORPUSCULAR HGB CONC 33 g/dL (33-37); MEAN CORPUSCULAR VOLUME 86.9 fL (80-94); MONOCYTES # (AUTO) 0.3 K/uL (0.8-1.0); NEUTROPHILS # (AUTO) 15.9 K/uL (1.8-7.7); PLATELET COUNT (AUTO) 250 K/uL (140-450); RED BLOOD CELL COUNT(AUTO) 3.56 MIL/uL (4.20-6.10); RED CELL DISTRIBUTION WIDTH 15.7 % (11.6-13.7); WHITE BLOOD COUNT (AUTO) 16.4 K/uL (4.8-10.8)
--- NOTE | 2020-11-20 08:44 | NUR ---
ENDORSED PATIENT TO DAY SHIFT RN FOR CONTINUITY OF CARE. PATIENT IN STABLE CONDITION.
--- NOTE | 2020-11-20 08:45 | NUR ---
RECEIVED REPORT FROM DAYSHIFT NURSE. PT RESTING IN BED. FLACC 0. RESPIRATIONS EVEN AND UNLABORED WITH NO SOB OR RESPIRATORY DISTRESS. SKIN WARM AND DRY TO TOUCH. IV SIT IN L UPPER MID LINE AND RAC 20G IS CLEAN, DRY, AND INTACT. SAFETY MEASURES IN PLACE. WILL CONTINUE TO MONITOR
[2020-11-20] MEDS: METOPROLOL SUCCINATE 50 MG TABER PO SCH (09:00)
[2020-11-20] MEDS: TAMSULOSIN 0.4 MG CAP PO SCH ×2 (09:00→20:55)
[2020-11-20] MEDS: BICALUTAMIDE 50 MG TAB PO SCH (09:00)
[2020-11-20] MEDS: VITAMIN D 400 IU TAB PO SCH (09:00)
[2020-11-20] MEDS: amLODIPine 5 MG TAB PO SCH (09:00)
[2020-11-20] MEDS: PANTOPRAZOLE 40 MG TABEC PO SCH (09:00)
[2020-11-20] MEDS: ASCORBIC ACID 500 MG TAB PO SCH (09:00)
[2020-11-20] MEDS: DEXAMETHASONE 4 MG/ML VIAL IVP SCH (09:16)
--- NOTE | 2020-11-20 09:21 | NUR ---
PT NPO DUE TO FAILED SWALLOW EVAL SO NO PO MEDS GIVEN. ADMINISTERED IVP DEXAMETHASONE PRESCRIBED PER MD ORDER. PT TOLERATED WELL. SAFETY MEASURES IN PLACE. WILL CONTINUE TO MONITOR
[2020-11-20 09:55] LABS: ALBUMIN 1.9 g/dL (3.4-5.0); ANION GAP 16.7 (8-16); ASPARTATE AMINOTRANSFERASE 76 U/L (15-37); CHLORIDE 107 mmol/L (98-107); CREATININE 1.3 mg/dL (0.6-1.3); GLUCOSE 247 mg/dL (74-106); MAGNESIUM 2.2 mg/dL (1.8-2.4); PHOSPHORUS 2.6 mg/dL (2.5-4.9); POTASSIUM 3.7 mmol/L (3.5-5.1); SODIUM SERUM 140 mmol/L (136-145); TOTAL BILIRUBIN 0.6 mg/dL (0.0-1.0); UREA NITROGEN, BLOOD 59 mg/dL (7-18)
--- NOTE | 2020-11-20 11:52 | NUR ---
PT RESTLESS AND AGITATED. PT TRYING TO GET OUT OF RESTRAINTS AND PULL OUT LINES. ADMINISTERED PRN ATIVAN PRESCRIBED PER MD ORDER. PT TOLERATED WELL. SAFETY MEASURES IN PLACE. WILL CONTINUE TO MONITOR
[2020-11-20] MEDS: GAUZE TP SCH (13:04)
--- NOTE | 2020-11-20 13:15 | NUR ---
PT RESTING IN BED. ABLE TO MAKE NEEDS KNOWN. RESPIRATIONS EVEN AND UNLABORED WITH NO SOB OR RESPIRATORY DISTRESS. SKIN WARM AND DRY TO TOUCH. SAFETY MEASURES IN PLACE. WILL CONTINUE TO MONITOR
[2020-11-20 16:00] VITALS: BP 157/64
--- NOTE | 2020-11-20 16:15 | NUR ---
PT RESTING IN BED. FLACC 0. SKIN WARM AND DRY TO TOUCH. NO SIGNS OF DISTRESS. WILL CONTINUE TO MONITOR
--- NOTE | 2020-11-20 17:00 | NUR ---
COLLECTED RAPID NICOLASA PRESCRIBED PER MD ORDER. PT TOLERATED WELL. SAFETY MEASURES IN PLACE. WILL CONTINUE TO MONITOR
--- NOTE | 2020-11-20 17:03 | NUR ---
11/20/20 RD FOLLOW UP COMPLETED PLEASE REFER TO NUTRITION ASSESSMENT UNDER CARE ACTIVITY FOR ESTIMATED NUTRITIONAL NEEDS. 1. CONTINUE NPO WITH TPN D10%, AA 4.25% @100 ML/HR LIPIDS 20% 150 ML -THIS WILL PROVIDE 1524 KCAL, 102 GM OF PROTEIN 2. CONSIDER PEG PLACEMENT. RECOMMENDATION GLUCERNA 1.5 @ 45 X 24 HR. THIS WILL PROVIDE 1620 KCAL AND 89 GM OF PROTEIN MEETING 100% OF ESTIMATED KCAL AND PROTEIN NEEDS; FLUSH [address] TO FOLLOW-UP 2-3 DAYS, HIGH RISK NICOLETTE RANGEL RD
--- NOTE | 2020-11-20 17:20 | NUR ---
ADMINISTERED SCHED IV FLUID. PT TOLERATED WELL. SAFETY MEASURES IN PLACE. WILL CONTINUE TO MONITOR
--- NOTE | 2020-11-20 18:00 | NUR ---
PT BLOOD SUGAR IS 240. PRN TO BE ADMINISTERED PRESCRIBED PER MD ORDER. SAFETY MEASURES IN PLACE. WILL CONTINUE TO MONITOR
--- NOTE | 2020-11-20 18:14 | NUR ---
ADMINISTERED INSULIN PRESCRIBED PER MD ORDER. PT TOLERATED WELL. SAFETY MEASURES IN PLACE. WILL CONTINUE TO MONITOR
--- NOTE | 2020-11-20 19:25 | NUR ---
ENDORSED TO NIGHTSHIFT FOR CONTINUITY OF CARE. PT IS STABLE
[2020-11-20 20:00] VITALS: BP 158/32
[2020-11-20] MEDS: MULTIVITAMIN IV SCH ×4 (20:01)
[2020-11-20] MEDS: DEXTROSE IV SCH ×4 (20:01)
[2020-11-20] MEDS: AMINO ACIDS 8.5% IV SCH ×4 (20:01)
[2020-11-20] MEDS: [UNRECOGNIZED DRUG - OTHER] IV SCH ×4 (20:01)
[2020-11-20] MEDS: ATORVASTATIN 80 MG TAB PO SCH (20:56)
[2020-11-20] MEDS ORDERED: cefTRIAXone 1,000 MG VIAL ONE (23:20)
[2020-11-21] MEDS: INSULIN LISPRO SLIDING SCALE 100 UNITS/ML VIAL SUBQ PRN (00:08)
[2020-11-21] MEDS: BLOOD GLUCOSE MONITORING 1 DEV DEV MC SCH ×3 (00:17→12:00)
[2020-11-21 04:00] VITALS: BP 95/65
[2020-11-21] MEDS: ALBUTEROL HFA MDI 90 MCG/ACTUATION 8 GM INH SCH ×2 (04:00)
[2020-11-21] MEDS: HYDRAGUARD CREAM TP SCH ×2 (05:59→13:00)
[2020-11-21] MEDS: DEXT 5% / NACL 0.2% 1,000 ML IV SCH (07:09)
[2020-11-21 07:24] LABS: HEMATOCRIT 29.4 % (36-52); HEMOGLOBIN 9.6 g/dL (12.0-18.0); MEAN CORPUSCULAR HEMOGLOBIN 28 pg (27-31); MEAN CORPUSCULAR HGB CONC 33 g/dL (33-37); MEAN CORPUSCULAR VOLUME 86.5 fL (80-94); PLATELET COUNT (AUTO) 213 K/uL (140-450); RED CELL DISTRIBUTION WIDTH 15.9 % (11.6-13.7); WHITE BLOOD COUNT (AUTO) 21.3 K/uL (4.8-10.8)
--- NOTE | 2020-11-21 07:45 | NUR ---
REC'D REPORT FROM EDITOR PRODUCER NURSE, PT ON 8L OXIMIZER, NO SIGN OF DISTRESS. PT ON MAL. HAND SOFT RESTRAINT. TPN 100ML/HR ; D5/.02NS AT 75ML/HR. STABLE.
[2020-11-21 07:55] LABS: LYMPHOCYTES % (MANUAL) 1 % (20-46); MONOCYTES % (MANUAL) 3 % (5-12)
[2020-11-21 08:24] LABS: ALBUMIN 1.6 g/dL (3.4-5.0); ANION GAP 17.7 (8-16); ASPARTATE AMINOTRANSFERASE 61 U/L (15-37); CARBON DIOXIDE 19.8 mmol/L (21-32); CHLORIDE 106 mmol/L (98-107); CREATININE 1.6 mg/dL (0.6-1.3); GLUCOSE 133 mg/dL (74-106); POTASSIUM 4.5 mmol/L (3.5-5.1); SODIUM SERUM 139 mmol/L (136-145); TOTAL BILIRUBIN 0.7 mg/dL (0.0-1.0)
[2020-11-21] MEDS: allopurinoL 100 MG TAB PO SCH (09:00)
[2020-11-21] MEDS: VITAMIN D 400 IU TAB PO SCH (09:00)
[2020-11-21] MEDS: amLODIPine 5 MG TAB PO SCH (09:00)
[2020-11-21] MEDS: ASCORBIC ACID 500 MG TAB PO SCH (09:00)
[2020-11-21] MEDS: BICALUTAMIDE 50 MG TAB PO SCH (09:00)
[2020-11-21 09:05] LABS: UREA NITROGEN, BLOOD 80 mg/dL (7-18)
[2020-11-21 09:26] LABS: CKMB RELATIVE INDEX 2.2 (0.0-2.5); CREATINE KINASE MB 11.1 ng/mL (0-3.6)
[2020-11-21] MEDS ORDERED: NACL 0.45% 1,000 ML IV SCH (09:40)
[2020-11-21] MEDS ORDERED: ALBUMIN HUMAN 5 % 250 ML IV SCH (09:40)
[2020-11-21] MEDS: DEXAMETHASONE 4 MG/ML VIAL IVP SCH (10:10)
[2020-11-21] MEDS: TAMSULOSIN 0.4 MG CAP PO SCH (10:12)
[2020-11-21] MEDS ORDERED: MORPHINE SULFATE 2 MG/ML SYR IVP SCH (11:00)
--- NOTE | 2020-11-21 11:53 | NUR ---
CHANGED IV FLUIDS TO NS 0.45 PER MD ORDER, ALBUMIN INFUSING PER MD ORDER, ADMINISTERED 1MG OF MORPHINE 1 TIME PER MD ORDER, PT WITH LABORED BREATHING, LUNGS CLEAR MAL. R. SIDE ADVENTITIOUS SOUND WHEEZING, MAL. RADIAL PULSES WEAK, S1S2 PRESENT, WITH APYCAL PULSE UNABLE TO ASSES D/T LUNG SOUNDS. PT IN MILD DISTRESS,WILL CONTINUE TO MONITOR
[2020-11-21] MEDS: GAUZE TP SCH (13:00)
--- NOTE | 2020-11-21 14:30 | NUR ---
ORDER FOR RESTRAINTS , PER DR. VICTOR, NO RENEWAL. RESTRAINTS WERE RELEASED, PT NO LONGER RESTRAINED.
[2020-11-21 16:00] VITALS: BP 101/48
--- NOTE | 2020-11-21 18:45 | NUR ---
ENTERED ROOM TO CHECK ON PT. NO RESPONSE, PT WITHOUT PULSE, AUSCULTATED HEART, NO HEARTBEAT HEARD, VITAL SIGNS SHOWED NO BLOOD PRESSURE, NO OXYGEN LEVEL, TEMPERATURE 97.6. PT MAL. EXTREMITIES WARM TO TOUCH. NOTIFIED DR. MOHAN AND ER.
--- NOTE | 2020-11-21 18:55 | NUR ---
CONTACTED SON TESHA RUBY, NOTIFIED OF PT. . DISCUSSED THE DAYSS EVENTS WITH SON, PT OXYGEN SATURATION DURING DAY AT 92% THROUGHOUT SHIFT, PT WAS GIVEN ALBUMIN, REQUEST FOR CONSULTATION FOR PEG TUBE WAS ORDERED, PT DID NOT SHOW SIGNS OF RESPIRATORY DECLINE OTHER THAN MOUTH BREATHING. SON VERBALLY UNDERSTOOD, ACKNOWLEDGED .
--- NOTE | 2020-11-21 19:00 | NUR ---
TAYLOR SALGUERO AT BEDSIDE, PRONOUNCED PT'S
--- NOTE | 2020-11-21 19:10 | NUR ---
CONTACTED [facility] [employer], INFORMED OF PT'S . PER STEPHANIE : PT NOT CANDIDATE FOR DONATION. ALLOWED TO RELEASE BODY TO MOLD MAINTENANCE TECHNICIAN. [phone] REFERANCE # [id number]
--- NOTE | 2020-11-21 19:40 | NUR ---
ENDORSED PT TO TABLE AND DESK FINISHER NURSE FOR POST MORTEM CARE
--- NOTE | 2020-11-21 19:43 | NUR ---
REC'D CALL FROM [employer] ANGEL GONZALEZ, INFORMED OF PT'S PASSING, PER CARLOS , BODY CAN BE RELEASED TO HOME. HE WILL INFORM STATE OF [place] OF REFERENCE NUMBER OF PT'S
--- NOTE | 2020-11-21 19:46 | NUR ---
LEFT MESSAGE AT TRIAL LAWYER'S OFFICE TO REPORT PT , WILL RECEIVE A CALL BACK
[2020-11-21] MEDS ORDERED: METOPROLOL 50 MG TAB PO SCH (21:00)
--- NOTE | 2020-11-21 22:22 | NUR ---
BEGAN W REPORT OF PT PASSING AT 1845. SPOKE W [facility] SENIOR WEALTH ADVISOR AND PT'S SON LATER IN SHIFT (AND SON LATER WHILE IN LOBBY). AFTERWARDS, POST-MORTEM CARE PROVIDED: REMOVED ALL ATTACHMENTS PLACED DURING HOSPITAL STAY (MIDLINE TO CHAVEZ, O2 MONITORS, OXIMIZER, IV TUBING, SALINE LOCKS, AND ELECTRO MECHANICAL SOLAR TECHNICIAN PADS (INCOMPLETE LIST). PT THEN CLEANED AND PLACED INTO PAIRED BODY BAGS. [place] NOW [place] [facility] [place] FAMILY/MORTUARY TO WHO WILL WATER QUALITY SPECIALIST REMAINS. Addendum: 11/21/20 at 2231 by Agency 06 RN RN ABOVE NOTE IS SHIFT NOTE FOR 11/21/2020 STARTING AT 1900.
[2020-11-22] MEDS ORDERED: PANTOPRAZOLE 40 MG INJ VIAL IVP SCH (09:00)
== END 2020-11-21 19:00 | DRG 871 ==
LOC: MED 18:16 → MTU 23:49
PROVIDERS: ADMIT Family Medicine; ATTEND Family Medicine
PROC: 30233N1 Transfusion of Nonautologous Red Blood Cells into Peripheral Vein, Percutaneous Approach (ICD-10-PCS; principal; 2020-11-17)
DX: A41.9 Sepsis, unspecified organism (principal); U07.1 COVID-19; J96.01 Acute respiratory failure with hypoxia; I21.A1 Myocardial infarction type 2; J12.82 Pneumonia due to coronavirus disease 2019; N17.0 Acute kidney failure with tubular necrosis; E87.0 Hyperosmolality and hypernatremia; E46 Unspecified protein-calorie malnutrition; D64.9 Anemia, unspecified; E11.40 Type 2 diabetes mellitus with diabetic neuropathy, unspecified; E78.5 Hyperlipidemia, unspecified; E86.0 Dehydration; E87.8 Other disorders of electrolyte and fluid balance, not elsewhere classified; F03.90 Unspecified dementia, unspecified severity, without behavioral disturbance, psychotic disturbance, mood disturbance, and anxiety; I10 Essential (primary) hypertension; I25.10 Atherosclerotic heart disease of native coronary artery without angina pectoris; J32.4 Chronic pansinusitis; K21.9 Gastro-esophageal reflux disease without esophagitis; M81.0 Age-related osteoporosis without current pathological fracture; N40.0 Benign prostatic hyperplasia without lower urinary tract symptoms; R62.7 Adult failure to thrive; Z51.5 Encounter for palliative care; Z66 Do not resuscitate; Z79.84 Long term (current) use of oral hypoglycemic drugs; Z79.899 Other long term (current) drug therapy; Z85.46 Personal history of malignant neoplasm of prostate; E86.1 Hypovolemia; I46.9 Cardiac arrest, cause unspecified
CPT/HCPCS: 36415; 36600; 70450; 71045; 80048; 80053; 81001; 82150; 82550; 82553; 82728; 82803; 82948; 83036; 83605; 83615; 83690; 83735; 83880; 83935; 84100; 84154; 84300; 84439; 84443; 84478; 84484; 85025; 85379; 85384; 85610; 85651; 85730; 86140; 86886; 86900; 86901; 86920; 87040; 87081; 87086; 87420; 87804; 92526; 92610; 93005; 96365; 96368; 96375; 99291; A6248; A9153; J0360; J0456; J0696; J1100; J1650; J2060; J2270; J3475; J3490; J7030; J7042; J7060; P9016; P9041; U0003